=== PATIENT | female | born 1990 | race Caucasian/White ===

== ENCOUNTER 2020-07-05 17:04 | Outpatient (REF) | payer OTHER, SELFPAY | END 2020-07-05 17:05 | disposition home or self-care (01) | LOC: HO.LAB 17:04 | PROVIDERS: PCP Internal Medicine; Visit Provider Internal Medicine | DX: Z20.828 Contact with and (suspected) exposure to other viral communicable diseases (principal) | CPT/HCPCS: C9803; U0003 ==

== ENCOUNTER 2021-09-03 10:16 | Outpatient (REF) | payer OTHER, SELFPAY | END 2021-09-03 10:17 | disposition home or self-care (01) | LOC: HO.HMGCLDS 10:16 | PROVIDERS: Visit Provider Internal Medicine | DX: Z20.822 Contact with and (suspected) exposure to COVID-19 (principal) | CPT/HCPCS: C9803; U0003; U0005 ==

== ENCOUNTER 2021-10-03 09:47 | Outpatient (REF) | payer OTHER, SELFPAY ==
[2021-10-03 10:12] LABS: MANUAL DIFF FLAG NO
[2021-10-03 10:44] LABS: Basophils Percent Auto 0.3 % (0-2); Eosinophils Absolute Auto 0.1 X10*3/uL (0.0-0.4); Eosinophils Percent Auto 0.9 % (0-4); Hematocrit 35.8 % (37.0-47.0); Hemoglobin 11.4 g/dl (12.0-16.0); Imm Gran Abs Auto 0.02 X10*3/uL (0.00-0.03); Imm Gran Pct Auto 0.3 % (0.0-0.4); Lymphocytes Absolute Auto 1.6 X10*3/uL (1.2-4.9); Lymphocytes Percent Auto 22.1 % (20-40); Mean Corpuscular HGB Conc 31.8 g/dl (31.0-35.0); Mean Corpuscular Hemoglobin 26.7 pg (27.0-33.0); Mean Corpuscular Volume 83.8 fL (80.0-98.0); Mean Platelet Volume 10.8 fL (9.4-12.3); Monocytes Absolute Auto 0.5 X10*3/uL (0.1-1.2); Monocytes Percent Auto 6.8 % (2-11); Neutrophils Absolute Auto 5.2 x10*3/uL (2.0-8.3); Neutrophils Percent Auto 69.6 % (45-73); Platelet Count 291 X10*3/uL (160-400); Red Blood Count 4.27 X10*6/uL (4.20-5.50); Red Cell Distribution Width 12.7 % (11.0-16.0); White Blood Count 7.4 X10*3/uL (4.8-10.8)
[2021-10-03 11:07] LABS: Alanine Aminotransferase 22 U/L (0-31); Albumin Level 4.2 g/dL (3.5-5.0); Alkaline Phosphatase 77 U/L (39-117); Anion Gap 13 (12-20); Aspartate Amino Transferase 18 U/L (5-31); Bilirubin Total 0.6 mg/dL (0.0-1.0); Blood Urea Nitrogen 10 mg/dL (9-16); Calcium 9.9 mg/dL (8.4-10.2); Carbon Dioxide 27 mmol/L (22-29); Chloride 104 mmol/L (96-108); Cholesterol 167 mg/dL; Estimated Glomerular Filt Rate > 60; Glucose Random 86 mg/dL (60-115); HDL Cholesterol 56 mg/dL; LDL Cholesterol Calculated 98 mg/dl; Potassium 4.6 mmol/L (3.3-5.1); Sodium 139 mmol/L (135-145); Total Protein 7.7 g/dL (6.5-8.0); Triglycerides 67 mg/dL
[2021-10-03 11:32] LABS: Thyroid Stimulating Hormone 0.29 uIU/mL (0.32-4.0)
== END 2021-10-03 09:48 | disposition home or self-care (01) ==
LOC: HO.LAB 09:47
PROVIDERS: PCP Internal Medicine; Visit Provider Internal Medicine
DX: Z00.00 Encounter for general adult medical examination without abnormal findings (principal); E03.8 Other specified hypothyroidism
CPT/HCPCS: 36415; 80053; 80061; 84443; 85025

== ENCOUNTER 2021-11-28 10:49 | Outpatient (REF) | payer OTHER, SELFPAY ==
[2021-11-28 11:22] LABS: MANUAL DIFF FLAG NO
[2021-11-28 12:19] LABS: Basophils Percent Auto 0.3 % (0-2); Eosinophils Absolute Auto 0.1 X10*3/uL (0.0-0.4); Eosinophils Percent Auto 0.7 % (0-4); Hematocrit 37.2 % (37.0-47.0); Hemoglobin 12.3 g/dl (12.0-16.0); Imm Gran Abs Auto 0.03 X10*3/uL (0.00-0.03); Imm Gran Pct Auto 0.3 % (0.0-0.4); Lymphocytes Absolute Auto 1.8 X10*3/uL (1.2-4.9); Lymphocytes Percent Auto 18.3 % (20-40); Mean Corpuscular HGB Conc 33.1 g/dl (31.0-35.0); Mean Corpuscular Hemoglobin 28.6 pg (27.0-33.0); Mean Corpuscular Volume 86.5 fL (80.0-98.0); Mean Platelet Volume 11.2 fL (9.4-12.3); Monocytes Absolute Auto 0.5 X10*3/uL (0.1-1.2); Monocytes Percent Auto 5.5 % (2-11); Neutrophils Absolute Auto 7.3 x10*3/uL (2.0-8.3); Neutrophils Percent Auto 74.9 % (45-73); Platelet Count 289 X10*3/uL (160-400); Red Cell Distribution Width 15.3 % (11.0-16.0); White Blood Count 9.8 X10*3/uL (4.8-10.8)
[2021-11-28 13:04] LABS: Ferritin 16 ng/mL (10-122); Thyroid Stimulating Hormone 83.76 uIU/mL (0.32-4.0)
== END 2021-11-28 10:50 | disposition home or self-care (01) ==
LOC: HO.LAB 10:49
PROVIDERS: PCP Internal Medicine; Visit Provider Internal Medicine
DX: D64.9 Anemia, unspecified (principal); E03.8 Other specified hypothyroidism; M70.51 Other bursitis of knee, right knee
CPT/HCPCS: 36415; 82728; 84443; 85025

== ENCOUNTER 2022-03-05 09:39 | Outpatient (REF) | payer OTHER, SELFPAY ==
[2022-03-05 10:58] LABS: Thyroid Stimulating Hormone 2.78 uIU/mL (0.32-4.0)
== END 2022-03-05 09:40 | disposition home or self-care (01) ==
LOC: HO.LAB 09:39
PROVIDERS: PCP Internal Medicine; Visit Provider Internal Medicine
DX: E03.8 Other specified hypothyroidism (principal)
CPT/HCPCS: 36415; 84443

== ENCOUNTER 2022-09-03 07:55 | Outpatient (REF) | payer OTHER, SELFPAY ==
[2022-09-03 08:08] LABS: MANUAL DIFF FLAG NO
[2022-09-03 08:35] LABS: Basophils Percent Auto 0.2 % (0-2); Eosinophils Absolute Auto 0.1 X10*3/uL (0.0-0.4); Eosinophils Percent Auto 0.8 % (0-4); Hematocrit 37.5 % (37.0-47.0); Hemoglobin 12.1 g/dl (12.0-16.0); Imm Gran Abs Auto 0.03 X10*3/uL (0.00-0.03); Imm Gran Pct Auto 0.4 % (0.0-0.4); Lymphocytes Absolute Auto 1.6 X10*3/uL (1.2-4.9); Lymphocytes Percent Auto 19.4 % (20-40); Mean Corpuscular HGB Conc 32.3 g/dl (31.0-35.0); Mean Corpuscular Hemoglobin 27.8 pg (27.0-33.0); Mean Platelet Volume 10.6 fL (9.4-12.3); Monocytes Absolute Auto 0.5 X10*3/uL (0.1-1.2); Neutrophils Absolute Auto 6.2 x10*3/uL (2.0-8.3); Neutrophils Percent Auto 73.2 % (45-73); Platelet Count 280 X10*3/uL (160-400); Red Blood Count 4.36 X10*6/uL (4.20-5.50); Red Cell Distribution Width 12.4 % (11.0-16.0); White Blood Count 8.5 X10*3/uL (4.8-10.8)
[2022-09-03 09:03] LABS: Alanine Aminotransferase 18 U/L (0-31); Albumin Level 4.2 g/dL (3.5-5.0); Alkaline Phosphatase 74 U/L (39-117); Anion Gap 11 (12-20); Aspartate Amino Transferase 14 U/L (5-31); Bilirubin Total 0.8 mg/dL (0.0-1.0); Blood Urea Nitrogen 15 mg/dL (9-16); Calcium 9.3 mg/dL (8.4-10.2); Carbon Dioxide 28 mmol/L (22-29); Chloride 103 mmol/L (96-108); Cholesterol 179 mg/dL; Estimated Glomerular Filt Rate > 60; Glucose Random 91 mg/dL (60-115); HDL Cholesterol 55 mg/dL; LDL Cholesterol Calculated 113 mg/dl; Potassium 4.3 mmol/L (3.3-5.1); Sodium 138 mmol/L (135-145); Total Protein 7.6 g/dL (6.5-8.0); Triglycerides 55 mg/dL
[2022-09-03 09:22] LABS: Thyroid Stimulating Hormone 4.69 uIU/mL (0.32-4.0)
== END 2022-09-03 07:56 | disposition home or self-care (01) ==
LOC: HO.LAB 07:55
PROVIDERS: PCP Internal Medicine; Visit Provider Internal Medicine
DX: Z00.00 Encounter for general adult medical examination without abnormal findings (principal); Z13.31 Encounter for screening for depression; G43.109 Migraine with aura, not intractable, without status migrainosus; E03.8 Other specified hypothyroidism; B35.4 Tinea corporis
CPT/HCPCS: 36415; 80053; 80061; 84443; 85025

== ENCOUNTER 2022-09-04 14:42 | Emergency (ER) | payer OTHER, SELFPAY ==
--- NOTE | ~2022-09-04 | XR_ITS ---
EXAMINATION: XR CHEST CLINICAL INFORMATION: Cough and chest pain. COMPARISON: None TECHNIQUE: 2 views of the chest were obtained. FINDINGS: Normal appearance of the cardiomediastinal silhouette. Diffuse interstitial thickening with no focal airspace opacity, pleural effusion or pneumothorax. No acute osseous abnormalities. The visualized upper abdomen is within normal limits. XR/XR chest 2V IMPRESSION: Diffuse interstitial thickening which is nonspecific and could be associated with asthma, bronchitis, reactive airways disease or atypical viral infections.
[2022-09-04 16:09] VITALS: BP 127/80; PULSE 127; RESP 18; TEMP 36.8; O2SAT 97; BMI 36.5
--- NOTE | 2022-09-04 16:10 | ED.GENADULT ---
HPI - General Adult General Source: patient and family <SRINIVASA Preciado - Last Filed: 09/04/22 18:51> Mode of arrival: ambulatory <SRINIVASA Preciado - Last Filed: 09/04/22 18:51> Limitations: no limitations <SRINIVASA Preciado - Last Filed: 09/04/22 18:51> History of Present Illness HPI narrative: 31-year-old female with past medical history of hypothyroidism is here today for complaining of body aches, fever, chills, headache, sore throat, cough. Symptoms started this morning. Patient states that she was fine yesterday. Patient denies any ill contact. Patient denies traveling anywhere. Reports nausea without vomiting. She denies any measured fevers, dizziness, neck pain/stiffness, trouble swallowing or breathing, chest pain or shortness of breath, dyspnea on exertion, orthopnea, palpitations, paresthesias, abdominal pain, back pain, dysuria, hematuria, abnormal vaginal discharge, black or bloody stools, diarrhea constipation, recent travel or sick contacts, lower extremity edema or calf tenderness, rashes or any other symptoms complaints or concerns at this time. <SRINIVASA Preciado - Last Filed: 09/04/22 18:51> MD complaint: URI complaints <SRINIVASA Preciado - Last Filed: 09/04/22 18:51> Onset (ago): day(s) (Started today) <SRINIVASA Preciado - Last Filed: 09/04/22 18:51> Related Data Home medications: Previous Rx's Medication Instructions Recorded acetaminophen 500 mg tablet 1,000 mg PO QID PRN fever or pain 09/04/22 (Tylenol Extra Strength) #14 tabs cyclobenzaprine 10 mg tablet 10 mg PO Q8H #14 tabs 09/04/22 ibuprofen 800 mg tablet 800 mg PO Q8H PRN pain #14 tabs 09/04/22 ondansetron HCl 4 mg tablet 4 mg PO Q8H #14 tabs 09/04/22 oseltamivir 75 mg capsule (Tamiflu) 75 mg PO BID 5 days #10 caps 09/04/22 <TINO Nicole - Last Filed: 09/08/22 20:46> Allergies/adverse reactions: Allergies Allergy/AdvReac Type Severity Reaction Status Date / Time No Known Allergies Allergy Unverified 05/17/20 17:18 <ULISES Nicole-PERNELL - Last Filed: 09/08/22 20:46> Review of Systems Review of Systems: Constitutional : + fever/chills/fatigue/malaise, No Weight loss, No Night Sweats ENT/Mouth : No Hearing loss, No Ear Pain, + Nasal Congestion, No Sinus Pain, No Hoarseness, + sore throat, + Rhinorrhea, No Swallowing Difficulty Eyes: No Eye Pain, No Swelling, No Redness, No Foreign Body, No Discharge, No Vision Changes Cardiovascular : No Chest Pain, No SOB, No Dyspnea on Exertion, No Orthopnea, No Edema, No Palpitations Respiratory : + Cough, No Sputum, No Wheezing, No Smoke Exposure, No Dyspnea Gastrointestinal : + Nausea, No Vomiting, No Diarrhea, No Constipation, No abdominal Pain, No Hematochezia, No Melena Genitourinary : no irregular bleeding, No Dysuria, No Urinary Frequency, No Hematuria, No Urinary Incontinence, No Urgency, No Flank Pain, No Urinary Flow Changes, No Hesitancy Musculoskeletal : No joint pain, + Myalgias, No Joint Swelling Skin : No Skin Lesions, No rash Neuro : No Weakness, No Numbness, No Paresthesias, No Loss of Consciousness, No Dizziness, + Headache Psych : No Anxiety/Panic, No Depression, No SI/HI/AH/VH, No Social Issues, Heme/Lymph: No Bruising, No Bleeding,No Lymphadenopathy Endocrine : No Polyuria, No Polydipsia, No Temperature Intolerance <SRINIVASA Preciado - Last Filed: 09/04/22 18:51> Yes all other systems are reviewed and are negative <SRINIVASA Preciado - Last Filed: 09/04/22 18:51> [facility] Past Medical History Attestation statement: The following information was validated with the patient. <SRINIVASA Preciado - Last Filed: 09/04/22 18:51> Source: old records reviewed, obtained from family and nursing notes reviewed <SRINIVASA Preciado - Last Filed: 09/04/22 18:51> Social History Social History: Social History Advance Directives: No Advance Directives Information Provided: No <Ese Jeronimo COMPUTER OPERATIONS MANAGER-BC - Last Filed: 09/08/22 20:46> Physical Exam ED Vital Signs: Vital Signs - 24 hr 09/04/22 16:09 Temperature 98.2 F Pulse Rate 127 H Respiratory Rate 18 Blood Pressure 127/80 Pulse Oximetry 97 Oxygen Delivery Method Room Air BMI result Body Mass Index 36.5 <CANDELARIA NicoleP-BC - Last Filed: 09/08/22 20:46> Vital Signs - 24 hr 09/04/22 16:09 Temperature 98.2 F Pulse Rate 127 H Respiratory Rate 18 Blood Pressure 127/80 Pulse Oximetry 97 Oxygen Delivery Method Room Air BMI result Body Mass Index 36.5 vital signs have been reviewed as normal and appeared to be correct. Blood pressure normal. Heart rate 127. Respiration rate normal. Temperature normal. Oxygen saturation normal. <SRINIVASA Preciado - Last Filed: 09/04/22 18:51> Appearance: Alert. Oriented X3. No acute distress. Head: Normal external exam. Normocephalic. Atraumatic. Eyes: PERRLA. EOMI. Conjunctiva and sclera normal. Eyelids normal. ENT: EAC normal. TM's Normal. Posterior pharynx/tonsils erythematous with exudate noted bilaterally. Otherwise soft and hard palate within normal limits. The rest of the pharynx is within normal limits. Uvula midline. Moist mucous membranes. No lesions/ulcerations or masses noted on the tongue. Normal voice. No trismus noted. No drooling noted. No muffled voice noted. Neck: Normal inspection. Neck supple. FROM. No adenopathy. Thyroid Normal. No tracheal deviation noted. No crepitus is noted. No meningeal signs. No neck mass noted. No signs of trauma noted. CVS: Normal heart rate and rhythm. Heart sound normal. Pulses normal throughout. No murmurs/rales/gallops. Respiratory: No respiratory distress. Painless inspiration. Breath sounds normal. No wheezes/rales/rhonchi noted. Chest nontender. No crepitus is noted. No signs of trauma noted. No accessory muscle usage noted or decreased air movement noted. No signs of trauma. Abdomen: Soft and nontender. Bowel sounds normal in all 4 quadrants. No distention noted. No organomegaly noted. No visible injury noted. Back: No CVA tenderness. Full range of motion noted. Nontender. No signs of trauma. Patient neuro intact bilaterally and distally on all 4 extremities. Patient's reflexes intact bilaterally and distally on all 4 extremities. No rashes/lesion/induration/fluctuance or signs of infection noted. Skin: Skin warm and dry. Normal skin color. Normal skin turgor. No rashes/lesions/lacerations noted. Extremities: No lower extremity edema. No calf tenderness is noted. Extremities exhibit normal range of motion and nontender. Neuro: Oriented X 3. No motor deficit. No sensory deficit. Reflexes normal. Normal steady gait. No focal neuro deficits noted. CN's II-XII intact bilaterally? Vascular: + radial pulses/+ 2 distal pedal pulses/+2 dorsalis pedis b/l. Normal cap refill. No cyanosis noted to upper extremity nails and lower extremity toes nails. <SRINIVASA Preciado - Last Filed: 09/04/22 18:51> Course Course Course Narrative: SUHAIL 31-year-old female with past medical history of hypothyroidism is here today for complaining of body aches, fever, chills, headache, sore throat, cough. Symptoms started this morning. Patient states that she was fine yesterday. Patient denies any ill contact. Patient denies traveling anywhere. Reports nausea without vomiting. Patient denies dyspepsia, dysphagia or odynophagia. Vital signs stable except for tachycardia. Patient will get EKG, chest x-ray, swab for RSV, COVID, flu. <ULISES Nicole-PERNELL - Last Filed: 09/08/22 20:46> CANDACEE 31-year-old female with past medical history of hypothyroidism is here today for complaining of body aches, fever, chills, headache, sore throat, cough. Symptoms started this morning. Patient states that she was fine yesterday. Patient denies any ill contact. Patient denies traveling anywhere. Reports nausea without vomiting. Patient denies dyspepsia, dysphagia or odynophagia. Vital signs stable except for tachycardia. Patient will get EKG, chest x-ray, swab for RSV, COVID, flu. <SRINIVASA Preciado - Last Filed: 09/04/22 18:51> Reevaluation(s) Reevaluation #1: 31-year-old female with past medical history of hypothyroidism is here today for complaining of body aches, fever, chills, headache, sore throat, cough. Symptoms started this morning. Patient states that she was fine yesterday. Patient denies any ill contact. Patient denies traveling anywhere. Reports nausea without vomiting. Patient denied vomiting although when I went back into the room to perform a strep swab she started vomiting at least 200 mL of bilious emesis. Otherwise patient is alert and oriented x3. Not in any acute distress. Tachycardic at 127 otherwise all other vitals are within normal limits. Neck is soft nontender and supple with full range of motion no meningeal signs are noted. Posterior pharynx tonsils mildly erythematous with exudate noted. Uvula is midline. No trismus/drooling/stridor. Patient tolerating secretions well. Lungs are clear to auscultation. Patient moving all extremities. This patient presents with URI symptoms consistent with influenza. Differential diagnosis includes COVID versus pharyngitis versus RSV versus gastroenteritis. Presentation not consistent with acute bacterial pneumonia, influenza, asthma, transient airway hyperresponsiveness. Presentation not consistent with chronic causes of cough (including GERD, asthma, postnasal discharge, medication side effect, CHF, lung cancer or mass). Therefore at this time will obtain labs, UA, UHCG, EKG that was obtained in triage, chest x-ray, rapid strep. Provide a L of IV fluids with 30 g of IV Toradol and 2 mg of IV Valium along with 4 mg of Zofran re-evaluate. <SRINIVASA Preciado - Last Filed: 09/04/22 18:51> Time: 18:00 <SRINIVASA Precidao - Last Filed: 09/04/22 18:51> Reevaluation #2: Labs obtained and patient's random glucose is 122. Otherwise all other labs are within normal limits. UA within normal limits no evidence of UTI. UHCG negative for . Patient negative for strep RSV and COVID. Patient positive for influenza. Chest x-ray within normal limits no acute processes are noted. EKG sinus tachycardia no acute ischemic change are noted. Patient feels much better after the L of IV fluids therefore at this time will DC home with symptomatic treatment for her influenza diagnosis along with nausea and vomiting and instructions return if any new or worsening symptoms to follow up with primary care provider. Patient understands agrees with this plan. <SRINIVASA Preciado - Last Filed: 09/04/22 18:51> Time: 18:50 <SRINIVASA Preciado - Last Filed: 09/04/22 18:51> Medications Administered Discontinued Medications Generic Name Dose Route Start Last Admin Trade Name Freq PRN Reason Stop Dose Admin Diazepam 2 mg 09/04/22 17:57 09/04/22 18:41 Diazepam 10 Mg/2 Ml Cartridge IVPUSH 09/04/22 17:58 2 mg STAT STA Administration Sodium Chloride 1,000 mls @ 999 mls/hr 09/04/22 18:00 09/04/22 18:20 Ns IVCONT 09/04/22 19:00 999 mls/hr .Q1H1M KARINA Administration Ketorolac Tromethamine 30 mg 09/04/22 17:57 09/04/22 18:40 Ketorolac Tromethamine 30 Mg/Ml Vial IVPUSH 09/04/22 17:58 30 mg ONCE ONE Administration Ondansetron HCl 4 mg 09/04/22 17:58 09/04/22 18:40 Ondansetron Hcl 4 Mg/2 Ml Vial IVPUSH 09/04/22 17:59 4 mg ONCE ONE Administration <Ese Jeronimo, COMPUTER OPERATIONS MANAGER-BC - Last Filed: 09/08/22 20:46> Medications Administered Discontinued Medications Generic Name Dose Route Start Last Admin Trade Name Freq PRN Reason Stop Dose Admin Diazepam 2 mg 09/04/22 17:57 09/04/22 18:41 Diazepam 10 Mg/2 Ml Cartridge IVPUSH 09/04/22 17:58 2 mg STAT STA Administration Sodium Chloride 1,000 mls @ 999 mls/hr 09/04/22 18:00 09/04/22 18:20 Ns IVCONT 09/04/22 19:00 999 mls/hr .Q1H1M KARINA Administration Ketorolac Tromethamine 30 mg 09/04/22 17:57 09/04/22 18:40 Ketorolac Tromethamine 30 Mg/Ml Vial IVPUSH 09/04/22 17:58 30 mg ONCE ONE Administration Ondansetron HCl 4 mg 09/04/22 17:58 09/04/22 18:40 Ondansetron Hcl 4 Mg/2 Ml Vial IVPUSH 09/04/22 17:59 4 mg ONCE ONE Administration <SRINIVASA Preciado - Last Filed: 09/04/22 18:51> Medical Decision Making Lab Data [facility] Lab Attestation statement: I reviewed the patient's lab results. <SRINIVASA Preciado - Last Filed: 09/04/22 18:51> Result Diagrams: 09/04/22 18:22 09/04/22 18:22 <ULISES Nicole- - Last Filed: 09/08/22 20:46> Labs: Lab Results 09/04/22 09/04/22 09/04/22 Range/Units 16:33 16:39 16:39 WBC (4.8-10.8) X10*3/uL RBC (4.20-5.50) X10*6/uL Hgb (12.0-16.0) g/dl Hct (37.0-47.0) % MCV (80.0-98.0) fL MCH (27.0-33.0) pg MCHC (31.0-35.0) g/dl RDW (11.0-16.0) % Plt Count (160-400) X10*3/uL MPV (9.4-12.3) fL Immature Gran % (Auto) (0.0-0.4) % Neut % (Auto) (45-73) % Lymph % (Auto) (20-40) % Door % (Auto) (2-11) % Eos % (Auto) (0-4) % Baso % (Auto) (0-2) % Lymph # (Auto) (1.2-4.9) X10*3/uL Door # (Auto) (0.1-1.2) X10*3/uL Eos # (Auto) (0.0-0.4) X10*3/uL Baso # (Auto) (0.0-0.2) X10*3/uL Abs Immat Gran (auto) (0.00-0.03) X10*3/uL Absolute Neuts (auto) (2.0-8.3) x10*3/uL Absolute Nucleated RBC (0.0-0.012) X10*3/uL Nucleated RBC % (auto) (0.0-0.2) /100WBC Smear Tech's Comments PT (10.0-13.1) SEC INR (0.9-1.1) Sodium (135-145) mmol/L Potassium (3.3-5.1) mmol/L Chloride (96-108) mmol/L Carbon Dioxide (22-29) mmol/L Anion Gap (12-20) BUN (9-16) mg/dL Creatinine (0.5-1.4) mg/dL Estim Creat Clear Calc Estimated GFR Random Glucose (60-115) mg/dL Calcium (8.4-10.2) mg/dL Magnesium (1.6-2.6) mg/dL Total Bilirubin (0.0-1.0) mg/dL AST (5-31) U/L ALT (0-31) U/L Alkaline Phosphatase (39-117) U/L Total Protein (6.5-8.0) g/dL Albumin (3.5-5.0) g/dL Urine Color Yellow Urine Appearance Clear Urine pH 8.5 (5.0-9.0) Ur Specific [place] 1.020 (1.005-1.025) Urine Protein Negative (Neg-Trace) mg/dL Urine Glucose (UA) Negative (Negative) mg/dL Urine Ketones 15 (Negative) mg/dL Urine Blood Trace H (Negative) Urine Nitrite Negative (Negative) Ur Leukocyte Esterase Negative (Negative) Urine RBC 6-10 H (0-2) /HPF Urine WBC 0-5 (0-5) /HPF Ur Squamous Epith Cells 3-5 (0-2) /HPF Urine Bacteria 1+ (None Seen) Hyaline Casts 0-2 (0-2) /LPF Urine Test NEGATIVE (NEGATIVE) Influenza Type A (PCR) POSITIVE A (Negative) Influenza Type B (PCR) NEGATIVE (Negative) RSV RNA Qual (PCR) NEGATIVE (Negative) SARS-CoV-2 RNA (RT-PCR) NEGATIVE (Negative) S. pyogenes GrpA BRANDY (Negative) 09/04/22 09/04/22 09/04/22 Range/Units 18:22 18:22 18:22 WBC 9.7 (4.8-10.8) X10*3/uL RBC 4.39 (4.20-5.50) X10*6/uL Hgb 12.1 (12.0-16.0) g/dl Hct 36.9 L (37.0-47.0) % MCV 84.1 (80.0-98.0) fL MCH 27.6 (27.0-33.0) pg MCHC 32.8 (31.0-35.0) g/dl RDW 12.5 (11.0-16.0) % Plt Count 261 (160-400) X10*3/uL MPV 10.7 (9.4-12.3) fL Immature Gran % (Auto) 1.2 H (0.0-0.4) % Neut % (Auto) 91.1 H (45-73) % Lymph % (Auto) 2.5 L (20-40) % Door % (Auto) 5.1 (2-11) % Eos % (Auto) 0.0 (0-4) % Baso % (Auto) 0.1 (0-2) % Lymph # (Auto) 0.2 L (1.2-4.9) X10*3/uL Door # (Auto) 0.5 (0.1-1.2) X10*3/uL Eos # (Auto) 0.0 (0.0-0.4) X10*3/uL Baso # (Auto) 0.0 (0.0-0.2) X10*3/uL Abs Immat Gran (auto) 0.12 H (0.00-0.03) X10*3/uL Absolute Neuts (auto) 8.8 H (2.0-8.3) x10*3/uL Absolute Nucleated RBC 0.000 (0.0-0.012) X10*3/uL Nucleated RBC % (auto) 0.0 (0.0-0.2) /100WBC Smear Tech's Comments VERIFIED PT 13.9 H (10.0-13.1) SEC INR 1.2 H (0.9-1.1) Sodium (135-145) mmol/L Potassium (3.3-5.1) mmol/L Chloride (96-108) mmol/L Carbon Dioxide (22-29) mmol/L Anion Gap (12-20) BUN (9-16) mg/dL Creatinine (0.5-1.4) mg/dL Estim Creat Clear Calc Estimated GFR Random Glucose (60-115) mg/dL Calcium (8.4-10.2) mg/dL Magnesium (1.6-2.6) mg/dL Total Bilirubin (0.0-1.0) mg/dL AST (5-31) U/L ALT (0-31) U/L Alkaline Phosphatase (39-117) U/L Total Protein (6.5-8.0) g/dL Albumin (3.5-5.0) g/dL Urine Color Urine Appearance Urine pH (5.0-9.0) Ur Specific [place] (1.005-1.025) Urine Protein (Neg-Trace) mg/dL Urine Glucose (UA) (Negative) mg/dL Urine Ketones (Negative) mg/dL Urine Blood (Negative) Urine Nitrite (Negative) Ur Leukocyte Esterase (Negative) Urine RBC (0-2) /HPF Urine WBC (0-5) /HPF Ur Squamous Epith Cells (0-2) /HPF Urine Bacteria (None Seen) Hyaline Casts (0-2) /LPF Urine Test (NEGATIVE) Influenza Type A (PCR) (Negative) Influenza Type B (PCR) (Negative) RSV RNA Qual (PCR) (Negative) SARS-CoV-2 RNA (RT-PCR) (Negative) S. pyogenes GrpA BRANDY Negative (Negative) 09/04/22 Range/Units 18:22 WBC (4.8-10.8) X10*3/uL RBC (4.20-5.50) X10*6/uL Hgb (12.0-16.0) g/dl Hct (37.0-47.0) % MCV (80.0-98.0) fL MCH (27.0-33.0) pg MCHC (31.0-35.0) g/dl RDW (11.0-16.0) % Plt Count (160-400) X10*3/uL MPV (9.4-12.3) fL Immature Gran % (Auto) (0.0-0.4) % Neut % (Auto) (45-73) % Lymph % (Auto) (20-40) % Door % (Auto) (2-11) % Eos % (Auto) (0-4) % Baso % (Auto) (0-2) % Lymph # (Auto) (1.2-4.9) X10*3/uL Door # (Auto) (0.1-1.2) X10*3/uL Eos # (Auto) (0.0-0.4) X10*3/uL Baso # (Auto) (0.0-0.2) X10*3/uL Abs Immat Gran (auto) (0.00-0.03) X10*3/uL Absolute Neuts (auto) (2.0-8.3) x10*3/uL Absolute Nucleated RBC (0.0-0.012) X10*3/uL Nucleated RBC % (auto) (0.0-0.2) /100WBC Smear Tech's Comments PT (10.0-13.1) SEC INR (0.9-1.1) Sodium 135 (135-145) mmol/L Potassium 3.7 (3.3-5.1) mmol/L Chloride 102 (96-108) mmol/L Carbon Dioxide 23 (22-29) mmol/L Anion Gap 14 (12-20) BUN 11 (9-16) mg/dL Creatinine 0.76 (0.5-1.4) mg/dL Estim Creat Clear Calc 135.3 Estimated GFR > 60 Random Glucose 122 H (60-115) mg/dL Calcium 9.2 (8.4-10.2) mg/dL Magnesium 1.6 (1.6-2.6) mg/dL Total Bilirubin 0.6 (0.0-1.0) mg/dL AST 16 (5-31) U/L ALT 19 (0-31) U/L Alkaline Phosphatase 79 (39-117) U/L Total Protein 7.7 (6.5-8.0) g/dL Albumin 4.3 (3.5-5.0) g/dL Urine Color Urine Appearance Urine pH (5.0-9.0) Ur Specific [place] (1.005-1.025) Urine Protein (Neg-Trace) mg/dL Urine Glucose (UA) (Negative) mg/dL Urine Ketones (Negative) mg/dL Urine Blood (Negative) Urine Nitrite (Negative) Ur Leukocyte Esterase (Negative) Urine RBC (0-2) /HPF Urine WBC (0-5) /HPF Ur Squamous Epith Cells (0-2) /HPF Urine Bacteria (None Seen) Hyaline Casts (0-2) /LPF Urine Test (NEGATIVE) Influenza Type A (PCR) (Negative) Influenza Type B (PCR) (Negative) RSV RNA Qual (PCR) (Negative) SARS-CoV-2 RNA (RT-PCR) (Negative) S. pyogenes GrpA BRANDY (Negative) <Ese Jeronimo, COMPUTER OPERATIONS MANAGER-BC - Last Filed: 09/08/22 20:46> Lab Results 09/04/22 09/04/22 09/04/22 Range/Units 16:33 16:39 16:39 WBC (4.8-10.8) X10*3/uL RBC (4.20-5.50) X10*6/uL Hgb (12.0-16.0) g/dl Hct (37.0-47.0) % MCV (80.0-98.0) fL MCH (27.0-33.0) pg MCHC (31.0-35.0) g/dl RDW (11.0-16.0) % Plt Count (160-400) X10*3/uL MPV (9.4-12.3) fL Immature Gran % (Auto) (0.0-0.4) % Neut % (Auto) (45-73) % Lymph % (Auto) (20-40) % Door % (Auto) (2-11) % Eos % (Auto) (0-4) % Baso % (Auto) (0-2) % Lymph # (Auto) (1.2-4.9) X10*3/uL Door # (Auto) (0.1-1.2) X10*3/uL Eos # (Auto) (0.0-0.4) X10*3/uL Baso # (Auto) (0.0-0.2) X10*3/uL Abs Immat Gran (auto) (0.00-0.03) X10*3/uL Absolute Neuts (auto) (2.0-8.3) x10*3/uL Absolute Nucleated RBC (0.0-0.012) X10*3/uL Nucleated RBC % (auto) (0.0-0.2) /100WBC Smear Tech's Comments PT (10.0-13.1) SEC INR (0.9-1.1) Sodium (135-145) mmol/L Potassium (3.3-5.1) mmol/L Chloride (96-108) mmol/L Carbon Dioxide (22-29) mmol/L Anion Gap (12-20) BUN (9-16) mg/dL Creatinine (0.5-1.4) mg/dL Estim Creat Clear Calc Estimated GFR Random Glucose (60-115) mg/dL Calcium (8.4-10.2) mg/dL Magnesium (1.6-2.6) mg/dL Total Bilirubin (0.0-1.0) mg/dL AST (5-31) U/L ALT (0-31) U/L Alkaline Phosphatase (39-117) U/L Total Protein (6.5-8.0) g/dL Albumin (3.5-5.0) g/dL Urine Color Yellow Urine Appearance Clear Urine pH 8.5 (5.0-9.0) Ur Specific [place] 1.020 (1.005-1.025) Urine Protein Negative (Neg-Trace) mg/dL Urine Glucose (UA) Negative (Negative) mg/dL Urine Ketones 15 (Negative) mg/dL Urine Blood Trace H (Negative) Urine Nitrite Negative (Negative) Ur Leukocyte Esterase Negative (Negative) Urine RBC 6-10 H (0-2) /HPF Urine WBC 0-5 (0-5) /HPF Ur Squamous Epith Cells 3-5 (0-2) /HPF Urine Bacteria 1+ (None Seen) Hyaline Casts 0-2 (0-2) /LPF Urine Test NEGATIVE (NEGATIVE) Influenza Type A (PCR) POSITIVE A (Negative) Influenza Type B (PCR) NEGATIVE (Negative) RSV RNA Qual (PCR) NEGATIVE (Negative) SARS-CoV-2 RNA (RT-PCR) NEGATIVE (Negative) S. pyogenes GrpA BRANDY (Negative) 09/04/22 09/04/22 09/04/22 Range/Units 18:22 18:22 18:22 WBC 9.7 (4.8-10.8) X10*3/uL RBC 4.39 (4.20-5.50) X10*6/uL Hgb 12.1 (12.0-16.0) g/dl Hct 36.9 L (37.0-47.0) % MCV 84.1 (80.0-98.0) fL MCH 27.6 (27.0-33.0) pg MCHC 32.8 (31.0-35.0) g/dl RDW 12.5 (11.0-16.0) % Plt Count 261 (160-400) X10*3/uL MPV 10.7 (9.4-12.3) fL Immature Gran % (Auto) 1.2 H (0.0-0.4) % Neut % (Auto) 91.1 H (45-73) % Lymph % (Auto) 2.5 L (20-40) % Door % (Auto) 5.1 (2-11) % Eos % (Auto) 0.0 (0-4) % Baso % (Auto) 0.1 (0-2) % Lymph # (Auto) 0.2 L (1.2-4.9) X10*3/uL Door # (Auto) 0.5 (0.1-1.2) X10*3/uL Eos # (Auto) 0.0 (0.0-0.4) X10*3/uL Baso # (Auto) 0.0 (0.0-0.2) X10*3/uL Abs Immat Gran (auto) 0.12 H (0.00-0.03) X10*3/uL Absolute Neuts (auto) 8.8 H (2.0-8.3) x10*3/uL Absolute Nucleated RBC 0.000 (0.0-0.012) X10*3/uL Nucleated RBC % (auto) 0.0 (0.0-0.2) /100WBC Smear Tech's Comments VERIFIED PT 13.9 H (10.0-13.1) SEC INR 1.2 H (0.9-1.1) Sodium (135-145) mmol/L Potassium (3.3-5.1) mmol/L Chloride (96-108) mmol/L Carbon Dioxide (22-29) mmol/L Anion Gap (12-20) BUN (9-16) mg/dL Creatinine (0.5-1.4) mg/dL Estim Creat Clear Calc Estimated GFR Random Glucose (60-115) mg/dL Calcium (8.4-10.2) mg/dL Magnesium (1.6-2.6) mg/dL Total Bilirubin (0.0-1.0) mg/dL AST (5-31) U/L ALT (0-31) U/L Alkaline Phosphatase (39-117) U/L Total Protein (6.5-8.0) g/dL Albumin (3.5-5.0) g/dL Urine Color Urine Appearance Urine pH (5.0-9.0) Ur Specific [place] (1.005-1.025) Urine Protein (Neg-Trace) mg/dL Urine Glucose (UA) (Negative) mg/dL Urine Ketones (Negative) mg/dL Urine Blood (Negative) Urine Nitrite (Negative) Ur Leukocyte Esterase (Negative) Urine RBC (0-2) /HPF Urine WBC (0-5) /HPF Ur Squamous Epith Cells (0-2) /HPF Urine Bacteria (None Seen) Hyaline Casts (0-2) /LPF Urine Test (NEGATIVE) Influenza Type A (PCR) (Negative) Influenza Type B (PCR) (Negative) RSV RNA Qual (PCR) (Negative) SARS-CoV-2 RNA (RT-PCR) (Negative) S. pyogenes GrpA BRANDY Negative (Negative) 09/04/22 Range/Units 18:22 WBC (4.8-10.8) X10*3/uL RBC (4.20-5.50) X10*6/uL Hgb (12.0-16.0) g/dl Hct (37.0-47.0) % MCV (80.0-98.0) fL MCH (27.0-33.0) pg MCHC (31.0-35.0) g/dl RDW (11.0-16.0) % Plt Count (160-400) X10*3/uL MPV (9.4-12.3) fL Immature Gran % (Auto) (0.0-0.4) % Neut % (Auto) (45-73) % Lymph % (Auto) (20-40) % Door % (Auto) (2-11) % Eos % (Auto) (0-4) % Baso % (Auto) (0-2) % Lymph # (Auto) (1.2-4.9) X10*3/uL Door # (Auto) (0.1-1.2) X10*3/uL Eos # (Auto) (0.0-0.4) X10*3/uL Baso # (Auto) (0.0-0.2) X10*3/uL Abs Immat Gran (auto) (0.00-0.03) X10*3/uL Absolute Neuts (auto) (2.0-8.3) x10*3/uL Absolute Nucleated RBC (0.0-0.012) X10*3/uL Nucleated RBC % (auto) (0.0-0.2) /100WBC Smear Tech's Comments PT (10.0-13.1) SEC INR (0.9-1.1) Sodium 135 (135-145) mmol/L Potassium 3.7 (3.3-5.1) mmol/L Chloride 102 (96-108) mmol/L Carbon Dioxide 23 (22-29) mmol/L Anion Gap 14 (12-20) BUN 11 (9-16) mg/dL Creatinine 0.76 (0.5-1.4) mg/dL Estim Creat Clear Calc 135.3 Estimated GFR > 60 Random Glucose 122 H (60-115) mg/dL Calcium 9.2 (8.4-10.2) mg/dL Magnesium 1.6 (1.6-2.6) mg/dL Total Bilirubin 0.6 (0.0-1.0) mg/dL AST 16 (5-31) U/L ALT 19 (0-31) U/L Alkaline Phosphatase 79 (39-117) U/L Total Protein 7.7 (6.5-8.0) g/dL Albumin 4.3 (3.5-5.0) g/dL Urine Color Urine Appearance Urine pH (5.0-9.0) Ur Specific [place] (1.005-1.025) Urine Protein (Neg-Trace) mg/dL Urine Glucose (UA) (Negative) mg/dL Urine Ketones (Negative) mg/dL Urine Blood (Negative) Urine Nitrite (Negative) Ur Leukocyte Esterase (Negative) Urine RBC (0-2) /HPF Urine WBC (0-5) /HPF Ur Squamous Epith Cells (0-2) /HPF Urine Bacteria (None Seen) Hyaline Casts (0-2) /LPF Urine Test (NEGATIVE) Influenza Type A (PCR) (Negative) Influenza Type B (PCR) (Negative) RSV RNA Qual (PCR) (Negative) SARS-CoV-2 RNA (RT-PCR) (Negative) S. pyogenes GrpA BRANDY (Negative) <SRINIVASA Preciado - Last Filed: 09/04/22 18:51> Independent Interpretation I performed an independent interpretation of an: EKG (Sinus tachycardia with ventricular rate of 116 with a normal VA interval normal QRS duration normal QT/QTC interval. No acute ischemic change are noted. No prior EKGs to compare to at this time.) and Plain X-Ray <SRINIVASA Preciado Last Filed: 09/04/22 18:51> Interpretation: Chest x-ray FINDINGS: Normal appearance of the cardiomediastinal silhouette. Diffuse interstitial thickening with no focal airspace opacity, pleural effusion or pneumothorax. No acute osseous abnormalities. The visualized upper abdomen is within normal limits. XR/XR chest 2V IMPRESSION: Diffuse interstitial thickening which is nonspecific and could be associated with asthma, bronchitis, reactive airways disease or atypical viral infections. <SRINIVASA Preciado Last Filed: 09/04/22 18:51> Radiology Impression Discussion of test interpretation with radiology: I have reviewed the radiologist's reading. <SRINIVASA Preciado Last Filed: 09/04/22 18:51> Independent Historian Clinical information obtained from an independent historian. History obtained from or confirmed by: Spouse <SRINIVASA Preciado Last Filed: 09/04/22 18:51> External Record Review External record reviewed: Inpatient record, Office record, Outpatient record, Prior outpatient labs, Prior outpatient radiology, Primary care record and Outside ED record <SRINIVASA Preciado Last Filed: 09/04/22 18:51> Prescription Management I considered prescription management with: Pain Medication, Antiviral and Antibiotic <SRINIVASA Preciado Last Filed: 09/04/22 18:51> Discharge Plan Discharge Clinical Impression: Influenza A, Nausea & vomiting <EseULISES Haider-BC - Last Filed: 09/08/22 20:46> Patient Disposition: Home, Self-Care <Ese TEREZA BrownPERNELL - Last Filed: 09/08/22 20:46> Instructions: Influenza (ED), Acute Nausea and Vomiting (ED) <EseULISES Haider-PERNELL - Last Filed: 09/08/22 20:46> Additional Instructions: You were evaluated for multiple concerns. You tested positive for influenza A. Alternate Tylenol 650 mg every 6 hours and Motrin 800 mg every 6 hours as needed for muscle aches and fever management. We gave you dose of Toradol at 19:00, your next dose of Motrin would be due at 01:00. Consider taking Tylenol at 23:00 so you can have pain and fever management every 3 hours. Write down what time you take these medications to prevent accidental overdose. Drink plenty of fluids. If symptoms worsen please return to the emergency department. Your prescribed multiple medications, please follow the instructions and write down what time you take them. Thank you for choosing this emergency department for evaluation. Please follow-up with primary care physician as needed. Return to the emergency department for any new, concerning, or worsening symptoms. <TEREZA NicolePERNELL - Last Filed: 09/08/22 20:46> Prescriptions: New ibuprofen 800 mg tablet 800 mg PO Q8H PRN (Reason: pain) Qty: 14 0RF acetaminophen [Tylenol Extra Strength] 500 mg tablet 1,000 mg PO QID PRN (Reason: fever or pain) Qty: 14 0RF cyclobenzaprine 10 mg tablet 10 mg PO Q8H Qty: 14 0RF ondansetron HCl 4 mg tablet 4 mg PO Q8H Qty: 14 0RF oseltamivir [Tamiflu] 75 mg capsule 75 mg PO BID 5 Days Qty: 10 0RF <TINO Nicole - Last Filed: 09/08/22 20:46> Referrals: Reema Rivera MD [Primary Care Provider] - 5 days <TINO Nicole - Last Filed: 09/08/22 20:46> Stand Alone Forms: Work/School Release <TINO Nicole - Last Filed: 09/08/22 20:46> Interventions: ED Discharge Assessment Last Done: 09/04/22 20:10 <TINO Nicole - Last Filed: 09/08/22 20:46> Discharge Date/Time: 09/04/22 20:11 <TINO Nicole - Last Filed: 09/08/22 20:46>
--- NOTE | 2022-09-04 16:19 | ECG_ITS ---
Test Reason : CP COUGH Blood Pressure : / mmHG Vent. Rate : 116 BPM Atrial Rate : 116 BPM P-R Int : 164 ms QRS Dur : 090 ms QT Int : 310 ms P-R-T Axes : 051 027 033 degrees QTc Int : 430 ms Sinus tachycardia Cannot rule out Anterior infarct , age undetermined ; could be from lead placement, body habitus Abnormal ECG No previous ECGs available Referred By: Ese Jeronimo Electronically Signed By:JOSE G KUMAR
[2022-09-04 16:58] LABS: Appearance Urine Clear; Color Urine Yellow; Glucose Urine UA Negative (Negative); Leukocyte Esterase Urine Negative (Negative); Nitrite Urine Negative (Negative); PH 8.5 (5.0-9.0); UMIC TRIGGER UACC YES; Urine Blood Trace (Negative); Urine Ketones 15 mg/dL (Negative); Urine Protein Negative (Neg-Trace)
[2022-09-04 17:00] LABS: UPreg QC Valid YES; Urine Pregnancy NEGATIVE (NEGATIVE)
[2022-09-04 17:21] LABS: Bacteria Urine 1+ (None Seen); Hyaline Casts Urine 0-2 /LPF (0-2); WBC Urine 0-5 /HPF (0-5)
[2022-09-04 17:28] LABS: Influenza A PCR POSITIVE (Negative); Influenza B PCR NEGATIVE (Negative); Resp Syncy Virus RNA Qual PCR NEGATIVE (Negative); SARS COV2 PCR INHOUSE NEGATIVE (Negative)
[2022-09-04] MEDS: 0.9 % Sodium Chloride 1,000 ML 999 ML IVCONT (18:20)
[2022-09-04 18:33] LABS: INTERNATIONAL NORM RATIO 1.2 (0.9-1.1); Prothrombin Time 13.9 SEC (10.0-13.1)
[2022-09-04] MEDS: ondansetron HCL 4 MG/2 ML VIAL IVPUSH (18:40)
[2022-09-04] MEDS: Ketorolac Tromethamine 30 MG/ML VIAL IVPUSH (18:40)
[2022-09-04] MEDS: diazePAM 10 MG/2 ML CARTRIDGE 2 MG IVPUSH (18:41)
[2022-09-04 18:43] LABS: IDNOW Serial# 6674DD1D; Strep A Nucleic Acid Negative (Negative)
[2022-09-04 18:45] LABS: Alanine Aminotransferase 19 U/L (0-31); Albumin Level 4.3 g/dL (3.5-5.0); Alkaline Phosphatase 79 U/L (39-117); Anion Gap 14 (12-20); Aspartate Amino Transferase 16 U/L (5-31); Bilirubin Total 0.6 mg/dL (0.0-1.0); Blood Urea Nitrogen 11 mg/dL (9-16); Calcium 9.2 mg/dL (8.4-10.2); Carbon Dioxide 23 mmol/L (22-29); Chloride 102 mmol/L (96-108); Creatinine Clr Calc Pharmacy 135.3; Estimated Glomerular Filt Rate > 60; Glucose Random 122 mg/dL (60-115); Magnesium 1.6 mg/dL (1.6-2.6); Potassium 3.7 mmol/L (3.3-5.1); Sodium 135 mmol/L (135-145); Total Protein 7.7 g/dL (6.5-8.0)
[2022-09-04 18:46] LABS: Basophils Percent Auto 0.1 % (0-2); Hematocrit 36.9 % (37.0-47.0); Hemoglobin 12.1 g/dl (12.0-16.0); Imm Gran Abs Auto 0.12 X10*3/uL (0.00-0.03); Imm Gran Pct Auto 1.2 % (0.0-0.4); Lymphocytes Absolute Auto 0.2 X10*3/uL (1.2-4.9); Lymphocytes Percent Auto 2.5 % (20-40); MANUAL DIFF FLAG SCAN; Mean Corpuscular HGB Conc 32.8 g/dl (31.0-35.0); Mean Corpuscular Hemoglobin 27.6 pg (27.0-33.0); Mean Corpuscular Volume 84.1 fL (80.0-98.0); Mean Platelet Volume 10.7 fL (9.4-12.3); Monocytes Absolute Auto 0.5 X10*3/uL (0.1-1.2); Monocytes Percent Auto 5.1 % (2-11); Neutrophils Absolute Auto 8.8 x10*3/uL (2.0-8.3); Neutrophils Percent Auto 91.1 % (45-73); Platelet Count 261 X10*3/uL (160-400); Red Blood Count 4.39 X10*6/uL (4.20-5.50); Red Cell Distribution Width 12.5 % (11.0-16.0); SCAN SMEAR FLAG 1; White Blood Count 9.7 X10*3/uL (4.8-10.8)
[2022-09-04 19:47] LABS: SLIDE REVIEW VERIFIED
== END 2022-09-04 20:11 | disposition home or self-care (01) ==
PROVIDERS: Nurse Practitioner Family; Physician Assistant Medical; Emergency Provider Emergency Medicine Emergency Medical Services; PCP Internal Medicine
DX: J10.1 Influenza due to other identified influenza virus with other respiratory manifestations (principal); R11.2 Nausea with vomiting, unspecified; R07.89 Other chest pain; R05.9 Cough, unspecified; Z20.822 Contact with and (suspected) exposure to COVID-19; Z79.899 Other long term (current) drug therapy
CPT/HCPCS: 0241U; 36415; 71046; 80053; 81001; 81003; 81025; 83735; 85025; 85610; 87651; 93005; 96374; 96375; 99284; J1885; J2405; J3360

== ENCOUNTER 2023-02-24 12:40 | Outpatient (REF) | payer OTHER, SELFPAY ==
[2023-02-25 04:36] LABS: HBS Num1 7.73 mIU/mL (0-7.99); ~Hepatitis B Surface Antibody NONREACTIVE (Nonreactive)
[2023-02-26 08:23] LABS: Rubella IgG Antibody <0.90 Index
[2023-02-26 10:03] LABS: Rubeola IgG (Measles) <13.50 AU/mL
[2023-02-26 21:54] LABS: TS Negative Control Passed; TS Panel A 0; TS Panel B 0; TS Positive Control Passed; TSpotTB Negative (Negative)
== END 2023-02-24 12:41 | disposition home or self-care (01) ==
LOC: HO.LAB 12:40
PROVIDERS: PCP Internal Medicine; Visit Provider Internal Medicine
DX: J35.3 Hypertrophy of tonsils with hypertrophy of adenoids (principal); Z11.1 Encounter for screening for respiratory tuberculosis
CPT/HCPCS: 36415; 86481; 86706; 86735; 86762; 86765; 86787

== ENCOUNTER 2023-03-19 09:01 | Outpatient (REF) | payer OTHER, SELFPAY | END 2023-03-19 09:02 | disposition home or self-care (01) | LOC: HO.LAB 09:01 | PROVIDERS: PCP Internal Medicine; Visit Provider Internal Medicine | DX: E03.8 Other specified hypothyroidism (principal); R21 Rash and other nonspecific skin eruption | CPT/HCPCS: 36415; 84443 ==

== ENCOUNTER 2023-06-25 11:16 | Outpatient (REF) | payer OTHER, SELFPAY ==
[2023-06-25 11:25] LABS: MANUAL DIFF FLAG NO
[2023-06-25 11:54] LABS: Basophils Percent Auto 0.3 % (0-2); Eosinophils Percent Auto 0.5 % (0-4); Hematocrit 35.9 % (37.0-47.0); Hemoglobin 11.6 g/dl (12.0-16.0); Imm Gran Abs Auto 0.02 X10*3/uL (0.00-0.03); Imm Gran Pct Auto 0.3 % (0.0-0.4); Lymphocytes Absolute Auto 1.8 X10*3/uL (1.2-4.9); Lymphocytes Percent Auto 22.6 % (20-40); Mean Corpuscular HGB Conc 32.3 g/dl (31.0-35.0); Mean Corpuscular Volume 86.5 fL (80.0-98.0); Mean Platelet Volume 10.9 fL (9.4-12.3); Monocytes Absolute Auto 0.4 X10*3/uL (0.1-1.2); Monocytes Percent Auto 5.4 % (2-11); Neutrophils Absolute Auto 5.6 x10*3/uL (2.0-8.3); Neutrophils Percent Auto 70.9 % (45-73); Platelet Count 263 X10*3/uL (160-400); Red Blood Count 4.15 X10*6/uL (4.20-5.50); Red Cell Distribution Width 12.8 % (11.0-16.0); White Blood Count 7.8 X10*3/uL (4.8-10.8)
[2023-06-26 17:39] LABS: Rubeola IgG (Measles) >300.00 AU/mL
[2023-06-27 14:33] LABS: Anti Nuclear Antibody Screen NEGATIVE (NEGATIVE)
== END 2023-06-25 11:17 | disposition home or self-care (01) ==
LOC: HO.LAB 11:16
PROVIDERS: PCP Internal Medicine; Visit Provider Internal Medicine
DX: K12.1 Other forms of stomatitis (principal); R21 Rash and other nonspecific skin eruption
CPT/HCPCS: 36415; 85025; 86038; 86735; 86762; 86765

== ENCOUNTER 2023-07-06 14:51 | Outpatient (REF) | payer OTHER, SELFPAY ==
[2023-07-07 05:50] LABS: HBS Num1 > 1000.00 mIU/mL (0-7.99); ~Hepatitis B Surface Antibody REACTIVE (Nonreactive)
== END 2023-07-06 14:52 | disposition home or self-care (01) ==
LOC: HO.LAB 14:51
PROVIDERS: PCP Internal Medicine; Visit Provider Internal Medicine
DX: K12.1 Other forms of stomatitis (principal); R21 Rash and other nonspecific skin eruption
CPT/HCPCS: 36415; 86706

== ENCOUNTER 2023-08-19 12:09 | Outpatient (REF) | payer OTHER, SELFPAY ==
[2023-08-19 14:00] LABS: Thyroid Stimulating Hormone 0.77 uIU/mL (0.32-4.0)
== END 2023-08-19 12:10 | disposition home or self-care (01) ==
LOC: HO.LAB 12:09
PROVIDERS: PCP Internal Medicine; Visit Provider Internal Medicine
DX: E03.8 Other specified hypothyroidism (principal)
CPT/HCPCS: 36415; 84443

== ENCOUNTER 2024-03-28 15:19 | Outpatient (REF) | payer OTHER, SELFPAY ==
[2024-03-28 17:52] LABS: Thyroid Stimulating Hormone 1.26 uIU/mL (0.32-4.0)
[2024-03-31 02:29] LABS: TS Negative Control Passed; TS Panel A 1; TS Panel B 0; TS Positive Control Passed; TSpotTB Negative (Negative)
== END 2024-03-28 15:20 | disposition home or self-care (01) ==
LOC: HO.LAB 15:19
PROVIDERS: PCP Internal Medicine; Visit Provider Internal Medicine
DX: E03.8 Other specified hypothyroidism (principal); G43.109 Migraine with aura, not intractable, without status migrainosus; Z11.1 Encounter for screening for respiratory tuberculosis
CPT/HCPCS: 36415; 84443; 86481

== ENCOUNTER 2024-08-10 00:48 | Emergency (ER) | payer OTHER, SELFPAY ==
--- NOTE | ~2024-08-10 | CT_ITS ---
EXAMINATION: CT ABDOMEN AND PELVIS WITHOUT CONTRAST CLINICAL INFORMATION: Left flank pain. COMPARISON: CT abdomen pelvis 11/15/2013. TECHNIQUE: Multidetector volumetric imaging was performed from the superior aspect of the liver through the pubic symphysis. Sagittal and coronal reformatted images were obtained on the technologist's workstation. This CT examination was performed using dose optimization techniques as appropriate, variously including the following: *Automated exposure control *Adjustment of mA and/or kV according to patient size (this includes techniques or standardized protocols for targeted exams where dose is matched to indication/reason for exam; i.e. extremities or head) *Use of iterative reconstruction technique DLP: 816 mGy-cm FINDINGS: LUNG BASES: The visualized lung bases are unremarkable. LIVER, GALLBLADDER, AND BILIARY TREE: The liver is normal in size, shape, and attenuation. No focal hepatic lesion or biliary ductal dilatation is present. The gallbladder is unremarkable with no evidence of radiopaque gallstones, gallbladder wall thickening, or obvious pericholecystic inflammatory changes. PANCREAS: Unremarkable. SPLEEN: Unremarkable. ADRENAL GLANDS: Unremarkable. KIDNEYS AND URETERS: No hydronephrosis or perinephric inflammatory changes. A single 1 mm calculus is present in the region of the distal left ureter approximately 2 cm proximal to the left ureteral vesicular junction (series 4 image 61). This finding may represent a phlebolith in close proximity to the distal left ureter or a left ureteral calculus. No nephrolithiasis identified. BLADDER: Unremarkable. GASTROINTESTINAL TRACT: Normal appearance of the appendix. No free intraperitoneal fluid or gas collections. No intestinal dilatation or mural thickening. Normal appearance of the stomach and duodenum ABDOMINAL WALL: No significant hernia is appreciated. LYMPH NODES: Normal. VASCULAR: Unremarkable. PELVIC VISCERA: Intrauterine device is noted. No adnexal lesions visualized. OSSEOUS STRUCTURES: No suspicious skeletal abnormalities. CT/CT abdomen pelvis wo IV con IMPRESSION: 1. Solitary 1 mm calculus in the region of the distal left ureter approximately 2 cm proximal to the left ureteral vesicular junction. This finding may represent a phlebolith in close proximity to the distal left ureter or a left ureteral calculus. No hydronephrosis or perinephric inflammatory changes. No nephrolithiasis. 2. Normal appendix. Electronically signed by: Ludwig Barker MD 08/10/2024 03:56 AM [facility]
[2024-08-10 00:51] VITALS: BP 112/71; PULSE 95; RESP 18; TEMP 36.7; O2SAT 100; BMI 33.0
[2024-08-10 01:53] VITALS: BP 130/67; PULSE 87; RESP 16; TEMP 36.6; O2SAT 97
--- NOTE | 2024-08-10 02:04 | ED_ITS ---
HPI - Back Pain/Injury General Chief Complaint: Back Pain/Injury Stated Complaint: back pain Time Seen by Provider: 08/10/24 01:44 Source: patient Mode of arrival: ambulatory Limitations: no limitations History of Present Illness ED Provider: CHANELLE ALCOCER Narrative: 33 yo female with no sig PMH not on thinners, no known trauma, no b/b incontinence, no saddle anesthesia but sharp pain with movements in lower lumbar spine - hurts to move, does not hurt to touch. She has never felt like this before. NO hx of kidney stones. MD elicited complaint: back pain Onset (ago): hour(s) (several) Timing: constant Severity: moderate Similar Symptoms Previously: No Quality: sharp Location: lumbar spine Radiation: none Exacerbating factors: movement Relieving factors: none Context: unknown Associated symptoms: denies other symptoms Treatments prior to arrival: NSAIDS Work related injury: No Related Data Previous Rx's ?Medication ?Instructions ?Recorded acetaminophen 500 mg tablet 1,000 mg (2 x 500 mg) PO QID PRN 09/04/22 (Tylenol Extra Strength) fever or pain #14 tabs cyclobenzaprine 10 mg tablet 10 mg PO Q8H #14 tabs 09/04/22 ibuprofen 800 mg tablet 800 mg PO Q8H PRN pain #14 tabs 09/04/22 ondansetron HCl 4 mg tablet 4 mg PO Q8H #14 tabs 09/04/22 oseltamivir 75 mg capsule (Tamiflu) 75 mg PO BID 5 days #10 caps 09/04/22 cyclobenzaprine 10 mg tablet 10 mg PO TID PRN muscle spasm #20 08/10/24 tabs ketorolac 10 mg tablet 10 mg PO TID PRN pain 5 days #15 08/10/24 tabs Allergies Allergy/AdvReac Type Severity Reaction Status Date / Time No Known Allergies Allergy Unverified 08/10/24 00:53 Review of Systems 2 Review of Systems: Constitutional : No Weight loss, No Fever, No Chills, ENT/Mouth : No Hearing loss, No Ear Pain, No Nasal Congestion, No Sinus Pain, No Hoarseness, No sore throat, No Rhinorrhea, No Swallowing Difficulty Cardiovascular : No Chest Pain, No SOB Respiratory : No Cough, No Dyspnea Gastrointestinal : No Nausea, No Vomiting, No Diarrhea, No abdominal Pain, No Hematochezia, No Melena Genitourinary : No Dysuria, No Urinary Frequency, No Hematuria, No Urinary Incontinence, Musculoskeletal : positive back pain Skin : No Skin Lesions, No rash Neuro : No Weakness, No Numbness, No Paresthesias, no loss of bowel or bladder incontinence, no saddle anesthesia All other systems reviewed and are negative [facility] Past Medical History Attestation statement: The following information was validated with the patient. Source: old records reviewed Medical History (Updated 08/10/24 @ 04:22 by Mary Linder DO) No pertinent past medical history Social History Social History (Updated 08/10/24 @ 02:29 by Mary Linder DO) Patient Tobacco Use Status: Never used Tobacco Advance Directives: No Advance Directives Information Provided: Yes Physical Exam 2 Vital Signs: Vital Signs: Last Vital Signs Temp 97.8 F 08/10/24 01:53 Pulse 87 08/10/24 01:53 Resp 16 08/10/24 01:53 BP 130/67 08/10/24 01:53 Pulse Ox 97 08/10/24 01:53 O2 Del Method Room Air 08/10/24 01:53 BMI result Body Mass Index 33.0 Appearance: Alert. Oriented X3. No acute distress. Eyes: Pupils equal, round and reactive to light. ENT: Pharynx normal. Neck: Normal inspection. Neck supple. CVS: Normal heart rate and rhythm. Pulses normal. Respiratory: No respiratory distress. Breath sounds normal. Abdomen: Soft and nontender. Back: no ttp but does hurt to move Skin: Skin warm and dry. Normal skin color. Normal skin turgor. Extremities: No lower extremity edema. No calf ttp Neuro: Oriented X 3. No motor deficit. No sensory deficit. Medications Administered Discontinued Medications Generic Name Dose Route Start Last Admin Trade Name Freq PRN Reason Stop Dose Admin Cyclobenzaprine HCl 10 mg 08/10/24 01:55 08/10/24 02:37 Cyclobenzaprine Hcl 10 Mg Tablet PO 08/10/24 01:56 10 mg ONCE ONE Administration Ketorolac Tromethamine 15 mg 08/10/24 01:55 08/10/24 02:37 Ketorolac Tromethamine 15 Mg/Ml Vial IVPUSH 08/10/24 01:56 15 mg ONCE ONE Administration Medical Decision Making Medical Decision Making MDM Narrative: 33 yo female with no sig PMH not on thinners now here with L flank pain that was atrumatic and area it not ttp at this time will obtain UA, CT scan for renal colic, IV toradol for pain. Possible MSK vs renal colic Differential Diagnosis Differential Diagnoses: The differential diagnosis associated with the presentation includes Possible MSK vs renal colic Admission/Observation Consideration of admission/observation: Escalation of care including admission/observation considered pain improved no UTI and no obstruction Lab Data MDM Lab Attestation statement: I reviewed the patient's lab results. 08/10/24 02:24 08/10/24 02:24 Labs: Lab Results 08/10/24 08/10/24 Range/Units 02:23 02:24 WBC 11.6 H (4.8-10.8) X10*3/uL RBC 4.15 L (4.20-5.50) X10*6/uL Hgb 12.0 (12.0-16.0) g/dl Hct 35.1 L (37.0-47.0) % MCV 84.6 (80.0-98.0) fL MCH 28.9 (27.0-33.0) pg MCHC 34.2 (31.0-35.0) g/dl RDW 12.6 (11.0-16.0) % Plt Count 251 (160-400) X10*3/uL MPV 10.4 (9.4-12.3) fL Immature Gran % (Auto) 0.3 (0.0-0.4) % Neut % (Auto) 78.9 H (45-73) % Lymph % (Auto) 14.0 L (20-40) % [place] % (Auto) 6.3 (2-11) % Eos % (Auto) 0.3 (0-4) % Baso % (Auto) 0.2 (0-2) % Lymph # (Auto) 1.6 (1.2-4.9) X10*3/uL [place] # (Auto) 0.7 (0.1-1.2) X10*3/uL Eos # (Auto) 0.0 (0.0-0.4) X10*3/uL Baso # (Auto) 0.0 (0.0-0.2) X10*3/uL Abs Immat Gran (auto) 0.03 (0.00-0.03) X10*3/uL Absolute Neuts (auto) 9.1 H (2.0-8.3) x10*3/uL Absolute Nucleated RBC 0.000 (0.0-0.012) X10*3/uL Nucleated RBC % (auto) 0.0 (0.0-0.2) /100WBC Sodium 138 (135-145) mmol/L Potassium 3.8 (3.3-5.1) mmol/L Chloride 105 (96-108) mmol/L Carbon Dioxide 22 (22-29) mmol/L Anion Gap 15 (12-20) BUN 10 (9-16) mg/dL Creatinine 0.75 (0.5-1.4) mg/dL Estim Creat Clear Calc 127.8 Estimated GFR > 60 Random Glucose 92 (60-115) mg/dL Calcium 9.5 (8.4-10.2) mg/dL Magnesium 1.9 (1.6-2.6) mg/dL Total Bilirubin 0.8 (0.0-1.0) mg/dL Direct Bilirubin 0.2 (0.0-0.5) mg/dL AST 21 (5-31) U/L ALT 28 (0-31) U/L Alkaline Phosphatase 61 (39-117) U/L Total Protein 7.9 (6.5-8.0) g/dL Albumin 4.4 (3.5-5.0) g/dL Lipase 15 (8-78) U/L Urine Color Yellow Urine Appearance Clear Urine pH 6.0 (5.0-9.0) Ur Specific [place] 1.010 (1.005-1.025) Urine Protein Negative (Neg-Trace) mg/dL Urine Glucose (UA) Negative (Negative) mg/dL Urine Ketones 15 (Negative) mg/dL Urine Blood Negative (Negative) Urine Nitrite Negative (Negative) Ur Leukocyte Esterase Trace H (Negative) Urine RBC 0-2 (0-2) /HPF Urine WBC 0-5 (0-5) /HPF Ur Squamous Epith Cells 0-2 (0-2) /HPF Urine Bacteria None Seen (None Seen) Hyaline Casts 0-2 (0-2) /LPF Urine Test NEGATIVE (NEGATIVE) Independent Interpretation I performed an independent interpretation of an: CT Scan (?stone) Radiology Impression Discussion of test interpretation with radiology: I have reviewed the radiologist's reading. Prescription Management I considered prescription management with: Pain Medication and Other Discharge Plan Discharge Clinical Impression: Renal colic on left side Strain of lumbar region Qualifiers: Encounter type: initial encounter Qualified Code(s): S39.012A - Strain of muscle, fascia and tendon of lower back, initial encounter Patient Disposition: Home, Self-Care Instructions: Renal Colic (ED), Acute Low Back Pain (ED) Additional Instructions: return for fevers, worsening pain, vomiting or any other concerns stay hydrated and drink plenty of fluids CT/CT abdomen pelvis wo IV con IMPRESSION: 1. Solitary 1 mm calculus in the region of the distal left ureter approximately 2 cm proximal to the left ureteral vesicular junction. This finding may represent a phlebolith in close proximity to the distal left ureter or a left ureteral calculus. No hydronephrosis or perinephric inflammatory changes. No nephrolithiasis. 2. Normal appendix. Prescriptions: New cyclobenzaprine 10 mg tablet 10 mg PO TID PRN (Reason: muscle spasm) Qty: 20 0RF ketorolac 10 mg tablet 10 mg PO TID PRN (Reason: pain) 5 Days Qty: 15 0RF Rx Instructions: given IV toradol in department No Action ibuprofen 800 mg tablet 800 mg PO Q8H PRN (Reason: pain) Qty: 14 0RF acetaminophen [Tylenol Extra Strength] 500 mg tablet 1,000 mg PO QID PRN (Reason: fever or pain) Qty: 14 0RF cyclobenzaprine 10 mg tablet 10 mg PO Q8H Qty: 14 0RF ondansetron HCl 4 mg tablet 4 mg PO Q8H Qty: 14 0RF oseltamivir [Tamiflu] 75 mg capsule 75 mg PO BID 5 Days Qty: 10 0RF Referrals: [facility] [Provider Group] Stand Alone Forms: Work/School Release Print Language: Mohawk
[2024-08-10 02:29] LABS: Basophils Percent Auto 0.2 % (0-2); Eosinophils Percent Auto 0.3 % (0-4); Hematocrit 35.1 % (37.0-47.0); Imm Gran Abs Auto 0.03 X10*3/uL (0.00-0.03); Imm Gran Pct Auto 0.3 % (0.0-0.4); Lymphocytes Absolute Auto 1.6 X10*3/uL (1.2-4.9); MANUAL DIFF FLAG NO; Mean Corpuscular HGB Conc 34.2 g/dl (31.0-35.0); Mean Corpuscular Hemoglobin 28.9 pg (27.0-33.0); Mean Corpuscular Volume 84.6 fL (80.0-98.0); Mean Platelet Volume 10.4 fL (9.4-12.3); Monocytes Absolute Auto 0.7 X10*3/uL (0.1-1.2); Monocytes Percent Auto 6.3 % (2-11); Neutrophils Absolute Auto 9.1 x10*3/uL (2.0-8.3); Neutrophils Percent Auto 78.9 % (45-73); Platelet Count 251 X10*3/uL (160-400); Red Blood Count 4.15 X10*6/uL (4.20-5.50); Red Cell Distribution Width 12.6 % (11.0-16.0); White Blood Count 11.6 X10*3/uL (4.8-10.8)
[2024-08-10 02:31] LABS: Appearance Urine Clear; Color Urine Yellow; Glucose Urine UA Negative (Negative); Leukocyte Esterase Urine Trace (Negative); Nitrite Urine Negative (Negative); UMIC TRIGGER UACC YES; Urine Blood Negative (Negative); Urine Ketones 15 mg/dL (Negative); Urine Protein Negative (Neg-Trace)
[2024-08-10 02:32] LABS: UPreg QC Valid YES; Urine Pregnancy NEGATIVE (NEGATIVE)
[2024-08-10] MEDS: Ketorolac Tromethamine 15 MG/ML VIAL IVPUSH (02:37)
[2024-08-10] MEDS: Cyclobenzaprine HCl 10 MG TABLET PO (02:37)
[2024-08-10 02:44] LABS: Bacteria Urine None Seen (None Seen); Hyaline Casts Urine 0-2 /LPF (0-2); RBC Urine 0-2 /HPF (0-2); Squamous Epithelial Cell Urine 0-2 /HPF (0-2); WBC Urine 0-5 /HPF (0-5)
[2024-08-10 02:56] LABS: Albumin Level 4.4 g/dL (3.5-5.0); Anion Gap 15 (12-20); Aspartate Amino Transferase 21 U/L (5-31); Bilirubin Direct 0.2 mg/dL (0.0-0.5); Bilirubin Total 0.8 mg/dL (0.0-1.0); Blood Urea Nitrogen 10 mg/dL (9-16); Calcium 9.5 mg/dL (8.4-10.2); Carbon Dioxide 22 mmol/L (22-29); Chloride 105 mmol/L (96-108); Creatinine Clr Calc Pharmacy 127.8; Estimated Glomerular Filt Rate > 60; Glucose Random 92 mg/dL (60-115); Lipase 15 U/L (8-78); Magnesium 1.9 mg/dL (1.6-2.6); Potassium 3.8 mmol/L (3.3-5.1); Sodium 138 mmol/L (135-145); Total Protein 7.9 g/dL (6.5-8.0)
[2024-08-10 02:59] LABS: Alanine Aminotransferase 28 U/L (0-31); Alkaline Phosphatase 61 U/L (39-117)
[2024-08-10 04:18] VITALS: BP 130/67; PULSE 62; RESP 16; TEMP 36.8; O2SAT 97
[2024-08-10 05:12] VITALS: BP 130/67; PULSE 62; RESP 16; TEMP 36.8; O2SAT 97
--- OUTSIDE RECORDS SUMMARY | 2024-08-10 22:34 | XMS_ITS | Data Portability ---
Author Organization SRINIVASA [facility] Address [address] [place] [address] Care Team Providers Care Oracle Identity Management Consultant Name Role Phone THA HILLIARD Primary Care Provider [phone] Assessment No assessment recorded. Plan of Treatment Reminders Order Date Submit Date Provider Last Modified By Organization Details Last Modified Time Details Appointments None recorded. Lab rapid strep group A, throat 2022 023 [email or web address] [facility], [address] [place] [address], [phone], 14:58:49 streptococc us group A, culture, throat 2022 023 [facility], [address] [place] [address], [place], [address], 06:07:52 Referral None recorded. Procedures None recorded. Surgeries None recorded. Imaging None recorded. Medication Orders amoxicillin 500 mg capsule 2022 023 M[facility]INO [facility], [address] [place], [address], 14:58:51 Patient TargetsNo targets recorded. Patient Instructions Encounter Date Encounter Id Patient Instructions Last Modified By Organization Details Last Modified Time 02/01/2023 [id number] sore throat: car e instructions Not available 02/01/2023 14:58:49 Your rapid strep is negative but given your symptoms and findings it is still very likley you have strep. We are going to send a culture to the lab but we are treating you with antibiotics. Please take them as directed and finish the entire course. You can use tylenol and / or ibuprofen to help with pain and fever. We will notify you when results are available. Follow up with your PCP. Not available 02/01/2023 15:02:54 Reason for Referral None Reported. Results Created Date Observation Date Name Description Value Unit Range Abnormal Flag Note LastModifiedBy Organization Detail LastModifiedTime 02/02/2002/03/2023 BETA STREP GP A CULTU RE beta strep gp A culture NEGATI VE Refer ence Range : Negat leena Not Available [facility] ([facility]) [address] [facility], [place], [address], 02/04/2023 06:07:52 02/02/2002/01/2023 rapid strep group A, throa t Unknown Analyte Normal = Negati ve Not Available [address], [id number], 02/01/2023 13:39:48 02/02/2002/01/2023 rapid strep group A, throa t Unknown Analyte negati ve Not Available [address] [place] [address], [phone], 02/01/2023 13:39:48 Result Notes None recorded. Problems Name Problem SNOMED Code Status Onset Date Resolution Date Notes Provider Name and Address Organization Details Recorded Time Disorder of thyroid gland 47504703 Active 023 BETTY santos PA - [facility] 13:38:36 Migraine 54247883 Active 023 BETTY santos PA - [facility] 13:38:43 Problem Notes None recorded. Medical Equipment None Reported. Allergies No known drug allergies Medications Name Sig Start Date Stop Date Status Note LastModified by Organization Details LastModified Time cyclobenzap rine 10 mg tablet TAKE ONE TABLET BY MOUTH EVERY 8 HOURS 02/01 completed Not Available Not Available Not Available amoxicillin 500 mg capsule Take 1 capsule twice a day by oral route for 10 days. 2022 active Not Available Not Available Not Avai lable ibuprofen 800 mg tablet TAKE ONE TABLET BY MOUTH EVERY 8 HOURS NEEDED FOR PAIN active Not Available Not Available No t Available sumatriptan 100 mg tablet TAKE 1 TABLET BY MOUTH NEEDED FOR MIGRAINE HEADACHES . 02/01 completed Not Available Not Available Not Available ondansetron HCl 4 mg tablet TAKE ONE TABLET BY MOUTH EVERY 8 HOURS 02/01 completed Not Available Not Available Not Available acetaminoph en 500 mg tablet TAKE TWO TABLETS BY MOUTH FOUR TIMES A DAY NEEDED FOR PAIN OR FEVER 02/01 completed Not Available Not Available Not Available amitriptyli ne 10 mg tablet TAKE ONE TABLET BY MOUTH AT BEDTIME 02/01 completed Not Available Not Available Not Available oseltamivir 75 mg capsule TAKE ONE CAPSULE BY MOUTH TWICE A DAY FOR 5 DAYS 02/01 completed Not Available Not Available Not Available ketoconazol e 2 % topical cream APPLY EXTERNALL Y TWO TIMES A DAY 02/01 completed Not Available Not Available Not Available levothyroxi ne 112 mcg tablet TAKE ONE TABLET BY MOUTH EVERY DAY active Not Available Not Available No t Available EC-Naproxen 500 mg tablet,raman yed release TAKE ONE TABLET BY MOUTH TWICE A DAY 02/01 completed Not Available Not Available Not Available Vitals Date Recorded Body height Body mass index (BMI) Body weight Oxygen saturation Oxygen saturation in Arterial blood by Pulse oximetry Heart rate Respiratory rate Body temperature Systolic blood pressure Diastolic blood pressure Provider Name and Address Organization Details Last Updated DateTime 3 170.18 cm 36.8 kg/m2 537775. 21 g 100 % 100 % 75 /min 16 /min 97.6 [degF] 125 mm[Hg] 88 mm[Hg] BETTY COOK PA - [facility] 13:41:52 Social History Question Answer Notes LastModified by Organizat ion Details LastModified Time Tobacco Smoking Status Never Smoker BETTY santos PA - [facility] 02/01/2023 13:39:17 What Is Your Level Of Alcohol Consumption? None Information not available 02/01/2023 Are You Currently Employed? Yes Information not available 02/01/2023 Do You Use Any Illicit Or Recreational Drugs? No Information not available 02/01/2023 Have You Recently Traveled Abroad? No Information not available 02/01/2023 Are You Currently In School? Yes Information not available 02/01/2023 Do You Or Have You Ever Used Any Other Forms Of Tobacco Or Nicotine? No Information not available 02/01/2023 Sex: Unknown Functional Status None recorded. Mental Status None recorded. Family History Relationship Description Onset Age of this Age Resolved Age Notes LastModified by Organization Details LastModified Time Mother Diabetes mellitus Not available 2022 13:39:02 Medical History No medical history recorded. Gynecological History Statement/Question Response Date of LMP 01/18/2023 Is there any chance of ? No Obstetrics History GPAL:G 0 P 0 0 0 0 Immunizations Vaccine Type Date Status Note Provider Nam e and Address Organization Details Recorded Time Influenza, MDCK, quadrivalent, preservative 8 completed BETTY JOYCE null, PA - [facility] 02/01/2023 13:37:16 COVID-19, mRNA, LNP-S, PF, 100 mcg/0.5mL dose or 50 mcg/0.25mL dose 2 completed BETTY JOYCE null, PA - [facility] 02/01/2023 13:37:16 COVID-19, mRNA, LNP-S, PF, 30 mcg/0.3 mL dose 1 completed BETTY JOYCE null, PA - [facility] 02/01/2023 13:37:16 COVID-19, mRNA, LNP-S, PF, 30 mcg/0.3 mL dose 1 completed BETTY JOYCE null, PA - [facility] 02/01/2023 13:37:16 Tdap 1 completed BETTY JOYCE null, PA - [facility] 02/01/2023 13:37:16 Tdap 7 completed BETTY JOYCE null, PA - [facility] 02/01/2023 13:37:16 Past Encounters Encounter ID Performer Location Encounter Start Date Encounter Closed Date Diagnosis/Indication Diagnosis SNOMED-CT Code Diagnosis ICD10 Code [id number] SRINIVASA Beatty [address] [address] 02/01/2023 12:46:49 02/01/2023 15:05:29 Acute pharyngitis 478266179 J02.9 Health Concerns Section Related Observation LastModified by Organization Detai ls LastModified Time None Recorded Concern Status LastModified by Organization Details LastModified Time None Recorded Advance Directives Directive None Recorded Payers Encounter Date Sequence Insurance Name Policy Number Policy Guillen Covered Member ID Guillen Member ID Guarantor Name 02/01/2023 1 [facility] (MEDICAID HMO) [id number] Jackie Keller [id number] Jackie Keller Notes Date Note Type Note Provider Name and Address Organization Details Recorded Time 02/02/20 23 text/htm l Sore throatReported bypatient.Source of patient informationInformation obtained from patient; Patient arrived at Urgent Care ambulatory Location:throat Severity:moderate Quality:sharp; hurts to swallow Onset/Timin days Associated Symptoms:no cough; no shortness of breath; no wheezing; no vomiting; no nausea;fever; body aches SRINIVASA Mendez [facility] [place], [address], PA - [facility] 02/01/2023 15:03:41 OBGyn Episode No OBEpisode recorded.
== END 2024-08-10 05:12 | disposition home or self-care (01) ==
PROVIDERS: Emergency Provider Emergency Medicine; PCP Internal Medicine
DX: N20.0 Calculus of kidney (principal); S39.012A Strain of muscle, fascia and tendon of lower back, initial encounter; X50.0XXA Overexertion from strenuous movement or load, initial encounter; Y93.E9 Activity, other interior property and clothing maintenance; Y92.019 Unspecified place in single-family (private) house as the place of occurrence of the external cause; Y99.9 Unspecified external cause status
CPT/HCPCS: 36415; 74176; 80048; 80076; 81001; 81025; 83690; 83735; 85025; 96374; 99284; J1885

== ENCOUNTER 2024-08-12 08:56 | Emergency (ER) | payer OTHER, SELFPAY ==
--- NOTE | ~2024-08-12 | US_ITS ---
EXAMINATION: US RETROPERITONEAL LIMITED, LEFT(RENAL ONLY) CLINICAL INFORMATION: Left flank pain. COMPARISON: CT abdomen and pelvis dated August 10, 2024. TECHNIQUE: Real-time imaging of the left kidney was performed. FINDINGS: LEFT KIDNEY: 9.7 x 4.3 x 5.2 cm (SAG x AP x TRV). The kidney is normal in size, contour, and echogenicity. Renal cortical thickness is normal. No calculi or focal parenchymal lesions. No hydronephrosis. A left ureteral jet is demonstrated. US/US renal LT IMPRESSION: The left kidney is normal in appearance. No hydronephrosis. Electronically signed by: Floyd Rush DO 08/12/2024 03:37 PM EST
--- OUTSIDE RECORDS SUMMARY | 2024-08-12 08:59 | XMS_ITS | Data Portability ---
Author Organization [facility]INIVASA [facility] Address [address] [place] [address] Care Team Providers Care Tugboat Captain Name Role Phone THA HILLIARD Primary Care Provider [phone] Assessment No assessment recorded. Plan of Treatment Reminders Order Date Submit Date Provider Last Modified By Organization Details Last Modified Time Details Appointments None recorded. Lab rapid strep group A, throat [email or web address] [facility], [address] [place] [address], [phone], 14:58:49 streptococc us group A, culture, throat 2022 023 [facility], [address] [place] [address], [place], [address], 06:07:52 Referral None recorded. Procedures None recorded. Surgeries None recorded. Imaging None recorded. Medication Orders amoxicillin 500 mg capsule 2022 023 [facility], [address] [place], [address], 14:58:51 Patient TargetsNo targets recorded. Patient Instructions Encounter Date Encounter Id Patient Instructions Last Modified By Organization Details Last Modified Time 02/01/2023 [id number] sore throat: car e instructions Not available [...] Range : Negat leena Not Available [facility] ([facility]) [address] [facility], [place], [address], 02/04/2023 06:07:52 02/02/2002/01/2023 rapid strep group A, throa t Unknown Analyte Normal = Negati ve Not Available [address], [address], 02/01/2023 13:39:48 02/02/2002/01/2023 rapid strep group A, throa t Unknown Analyte negati ve Not Available [address] [place] [address], [address], 02/01/2023 13:39:48 Result Notes None recorded. Problems Name Problem SNOMED Code Status Onset Date Resolution Date Notes Provider Name and Address Organization Details Recorded Time Disorder of thyroid gland 81651595 Active 023 BETTY santos PA - [facility] 13:38:36 Migraine 66270579 Active 023 [facility]antos [facility] - [facility] [...] Updated DateTime 3 170.18 cm 36.8 kg/m2 761780. 21 g 100 % 100 % 75 [...] Diagnosis/Indication Diagnosis SNOMED-CT Code Diagnosis ICD10 Code [id number] SRINIVASA Beatty [address] [address] 02/01/2023 12:46:49 02/01/2023 15:05:29 Acute pharyngitis 819743508 J02.9 Health Concerns Section Related Observation LastModified by Organization Detai ls LastModified Time None Recorded Concern Status LastModified by Organization Details LastModified Time None Recorded Advance Directives Directive None Recorded Payers Encounter Date Sequence Insurance Name Policy Number Policy Guillen Covered Member ID Guillen Member ID Guarantor Name 02/01/2023 1 [facility] - HE[facility] NET PLAN (MEDICAID HMO) [id number] Jackie Keller [id number] Jackie Keller Notes Date Note Type Note Provider Name and Address Organization Details Recorded Time 02/02/20 23 text/htm l Sore throatReported bypatient.Source of patient informationInformation obtained from patient; Patient arrived at Urgent Care ambulatory Location:throat Severity:moderate Quality:sharp; hurts to swallow Onset/Timin days Associated Symptoms:no cough; no shortness of breath; no wheezing; no vomiting; no nausea;fever; body aches SRINIVASA Mendez [facility] [place], [address], PA - [facility] 02/01/2023 15:03:41 OBGyn Episode No OBEpisode recorded.
[2024-08-12 09:08] VITALS: BP 122/75; PULSE 77; RESP 18; TEMP 36.4; O2SAT 100; BMI 32.9
[2024-08-12 09:26] LABS: MANUAL DIFF FLAG NO
[2024-08-12 09:28] LABS: Basophils Percent Auto 0.3 % (0-2); Eosinophils Absolute Auto 0.1 X10*3/uL (0.0-0.4); Eosinophils Percent Auto 0.7 % (0-4); Hematocrit 35.9 % (37.0-47.0); Hemoglobin 12.1 g/dl (12.0-16.0); Imm Gran Abs Auto 0.02 X10*3/uL (0.00-0.03); Imm Gran Pct Auto 0.3 % (0.0-0.4); Lymphocytes Absolute Auto 1.5 X10*3/uL (1.2-4.9); Lymphocytes Percent Auto 21.6 % (20-40); Mean Corpuscular HGB Conc 33.7 g/dl (31.0-35.0); Mean Corpuscular Hemoglobin 28.7 pg (27.0-33.0); Mean Corpuscular Volume 85.3 fL (80.0-98.0); Mean Platelet Volume 10.5 fL (9.4-12.3); Monocytes Absolute Auto 0.4 X10*3/uL (0.1-1.2); Monocytes Percent Auto 5.5 % (2-11); Neutrophils Absolute Auto 5.1 x10*3/uL (2.0-8.3); Neutrophils Percent Auto 71.6 % (45-73); Platelet Count 248 X10*3/uL (160-400); Red Blood Count 4.21 X10*6/uL (4.20-5.50); Red Cell Distribution Width 12.5 % (11.0-16.0); White Blood Count 7.1 X10*3/uL (4.8-10.8)
[2024-08-12 09:30] LABS: Appearance Urine Clear; Color Urine Yellow; Glucose Urine UA Negative (Negative); Leukocyte Esterase Urine Small (1+) (Negative); Nitrite Urine Negative (Negative); PH 5.5 (5.0-9.0); UMIC TRIGGER UACC YES; Urine Blood Trace (Negative); Urine Ketones Negative (Negative); Urine Protein Negative (Neg-Trace)
[2024-08-12 09:40] LABS: Bacteria Urine None Seen (None Seen); Hyaline Casts Urine 0-2 /LPF (0-2); RBC Urine 0-2 /HPF (0-2); Squamous Epithelial Cell Urine 0-2 /HPF (0-2); UACC Culture Trigger YES; WBC Urine 0-5 /HPF (0-5)
[2024-08-12 09:42] LABS: Anion Gap 10 (12-20); Blood Urea Nitrogen 10 mg/dL (9-16); Calcium 9.3 mg/dL (8.4-10.2); Carbon Dioxide 25 mmol/L (22-29); Chloride 107 mmol/L (96-108); Creatinine Clr Calc Pharmacy 138.6; Estimated Glomerular Filt Rate > 60; Glucose Random 91 mg/dL (60-115); Potassium 3.8 mmol/L (3.3-5.1); Sodium 138 mmol/L (135-145)
--- NOTE | 2024-08-12 11:42 | ED.FEMALEGU ---
HPI - Female Genitourinary General Chief complaint: Urogenital-Female Stated complaint: back pain Time Seen by Provider: 08/12/24 11:42 Source: patient Mode of arrival: ambulatory Limitations: no limitations History of Present Illness ED Provider: KYREE PARK PA-C HPI Narrative: 33 year old female with presents to the ED today for evaluation of left flank pain x3 days. Patient reports constant pain to her left flank, waxing and waning in severity. Reports 10/10 pain while lying in bed last night which has since improved after taking toradol and flexeril. Patient was seen in our ED 2 days ago, diagnosed with a left ureteral stone/renal colic and was discharged home with Flexeril and Toradol. She reports pain once medications were off, prompting her to come back to the ED for further evaluation. Pain is not worse since she was evaluated in ED 2 days ago. She has not yet followed up with urology. She is not have any history of renal stones. She denies fever, chills, nausea or vomiting, abdominal pain, dysuria, hematuria, vaginal discharge. Denies chance of . Related Data Previous Rx's ?Medication ?Instructions ?Recorded acetaminophen 500 mg tablet 1,000 mg (2 x 500 mg) PO QID PRN 09/04/22 (Tylenol Extra Strength) fever or pain #14 tabs cyclobenzaprine 10 mg tablet 10 mg PO Q8H #14 tabs 09/04/22 ibuprofen 800 mg tablet 800 mg PO Q8H PRN pain #14 tabs 09/04/22 ondansetron HCl 4 mg tablet 4 mg PO Q8H #14 tabs 09/04/22 oseltamivir 75 mg capsule (Tamiflu) 75 mg PO BID 5 days #10 caps 09/04/22 cyclobenzaprine 10 mg tablet 10 mg PO TID PRN muscle spasm #20 08/10/24 tabs ketorolac 10 mg tablet 10 mg PO TID PRN pain 5 days #15 08/10/24 tabs Allergies Allergy/AdvReac Type Severity Reaction Status Date / Time No Known Allergies Allergy Unverified 08/12/24 09:09 Review of Systems Review of Systems: Constitutional: No fever, chills, fatigue, night sweats, weight changes ENT/Mouth: No ear pain, hearing loss, nasal congestion, sinus pain, rhinorrhea, sore throat Eyes: No eye pain, swelling, redness, vision changes, discharge Cardio: No chest pain, palpitations, CARTY, orthopnea, peripheral edema Pulm: No SOB, cough, sputum, wheezing, dyspnea, hemoptysis GI: No nausea, vomiting, hematemesis, abdominal pain, diarrhea, constipation, hematochezia, melena : No irregular bleeding, dysuria, frequency, urgency, hesitancy, hematuria, urinary flow changes, urinary incontinence or retention, +left flank pain MSK: No back pain, neck pain, joint pain, myalgias Skin: No lesions, rashes Neuro: No weakness, numbness, paresthesias, LOC, dizziness, headache Psych: No anxiety/panic, depression, SI/HI, AH/VH All other systems reviewed and are negative. [facility] Past Medical History Attestation statement: The following information was validated with the patient. Source: old records reviewed and nursing notes reviewed Medical History No pertinent past medical history Social History Social History Patient Tobacco Use Status: Never used Tobacco Physical Exam Vital Signs: Vital Signs: Last Vital Signs Temp 97.8 F 08/12/24 15:51 Pulse 72 08/12/24 15:51 Resp 18 08/12/24 15:51 BP 118/73 08/12/24 15:51 Pulse Ox 100 08/12/24 15:51 O2 Del Method Room Air 08/12/24 15:51 BMI result Body Mass Index 32.9 vital signs stable General: Well appearing, in no acute distress. Skin: Warm, dry, intact. No rashes or lesions. Head: Normocephalic, atraumatic. Cardiac: Chest wall symmetric. RRR Lungs: Normal respiratory effort without accessory muscle use. CTA bilaterally Abdomen: Soft, non-tender, non-distended. No rebound tenderness or guarding. Positive BS x4. No CVAT. Back: No midline spinous or paraspinal tenderness. No step off deformity. Ext: Upper and lower extremities atraumatic, without tenderness, deformity, swelling or erythema Neuro: AOx3. Normal speech. Ambulating with steady gait. Psych: Appropriate mood and affect. Responds appropriately to questions. Course Course Course Narrative: CBC without leukocytosis or left shift. No anemia. H&H stable. Chemistry without acute electrolyte abnormality requiring intervention. No YARA. Urine is negative for infection. Urine obtained 2 days ago negative. I did review CT scan obtained 2 days ago which shows 1 mm calculus within the region of the distal left ureter. The ultrasound of your left kidney today does not show evidence of hydronephrosis. No calculi within the kidney itself. > patient has continued to deny any pain in the ED. she has been sitting comfortably on the exam bed. Reports taking Toradol this morning prior to arrival in ED with improvement. I have suspicion that she was passing a kidney stone. Advised to continue Toradol outpatient. Referral to Urology provided. Patient has remained stable throughout ED visit today. Discussed worrisome signs and symptoms and when to return to the ED. All questions answered at this time. Patient is agreeable with disposition and stable for discharge. Medical Decision Making Medical Decision Making [facility] Narrative: 33 year old female with presents to the ED today for evaluation of left flank pain x3 days. Patient reports constant pain to her left flank, waxing and waning in severity. Vital signs are stable. She is nontoxic-appearing and in no acute distress. Sitting comfortably on the exam bed. Exam does not demonstrate CVAT. Her abdomen exam is benign. She is in no obvious discomfort. Differential diagnosis includes renal colic, nephrolithiasis, hydronephrosis, pyelonephritis, urinary tract infection, YARA Plan for repeat labs, renal ultrasound, urinalysis and re-evaluation. Differential Diagnosis Differential Diagnoses: The differential diagnosis associated with the presentation includes as above Admission/Observation Not indicated. Lab Data [facility] Lab Attestation statement: I reviewed the patient's lab results. as above. 08/12/24 09:19 08/12/24 09:19 Labs: Lab Results 08/12/24 Range/Units 09:19 WBC 7.1 (4.8-10.8) X10*3/uL RBC 4.21 (4.20-5.50) X10*6/uL Hgb 12.1 (12.0-16.0) g/dl Hct 35.9 L (37.0-47.0) % MCV 85.3 (80.0-98.0) fL MCH 28.7 (27.0-33.0) pg MCHC 33.7 (31.0-35.0) g/dl RDW 12.5 (11.0-16.0) % Plt Count 248 (160-400) X10*3/uL MPV 10.5 (9.4-12.3) fL Immature Gran % (Auto) 0.3 (0.0-0.4) % Neut % (Auto) 71.6 (45-73) % Lymph % (Auto) 21.6 (20-40) % Gallia % (Auto) 5.5 (2-11) % Eos % (Auto) 0.7 (0-4) % Baso % (Auto) 0.3 (0-2) % Lymph # (Auto) 1.5 (1.2-4.9) X10*3/uL Gallia # (Auto) 0.4 (0.1-1.2) X10*3/uL Eos # (Auto) 0.1 (0.0-0.4) X10*3/uL Baso # (Auto) 0.0 (0.0-0.2) X10*3/uL Abs Immat Gran (auto) 0.02 (0.00-0.03) X10*3/uL Absolute Neuts (auto) 5.1 (2.0-8.3) x10*3/uL Absolute Nucleated RBC 0.000 (0.0-0.012) X10*3/uL Nucleated RBC % (auto) 0.0 (0.0-0.2) /100WBC Sodium 138 (135-145) mmol/L Potassium 3.8 (3.3-5.1) mmol/L Chloride 107 (96-108) mmol/L Carbon Dioxide 25 (22-29) mmol/L Anion Gap 10 L (12-20) BUN 10 (9-16) mg/dL Creatinine 0.69 (0.5-1.4) mg/dL Estim Creat Clear Calc 138.6 Estimated GFR > 60 Random Glucose 91 (60-115) mg/dL Calcium 9.3 (8.4-10.2) mg/dL Urine Color Yellow Urine Appearance Clear Urine pH 5.5 (5.0-9.0) Ur Specific Hayes 1.020 (1.005-1.025) Urine Protein Negative (Neg-Trace) mg/dL Urine Glucose (UA) Negative (Negative) mg/dL Urine Ketones Negative (Negative) mg/dL Urine Blood Trace H (Negative) Urine Nitrite Negative (Negative) Ur Leukocyte Esterase Small (1+) H (Negative) Urine RBC 0-2 (0-2) /HPF Urine WBC 0-5 (0-5) /HPF Ur Squamous Epith Cells 0-2 (0-2) /HPF Urine Bacteria None Seen (None Seen) Hyaline Casts 0-2 (0-2) /LPF Independent Interpretation I performed an independent interpretation of an: Ultrasound Interpretation: left renal ultrasound without hydronephrosis Radiology Impression Discussion of test interpretation with radiology: I have reviewed the radiologist's reading. Radiologist Impression: EXAMINATION: US RETROPERITONEAL LIMITED, LEFT(RENAL ONLY) CLINICAL INFORMATION: Left flank pain. COMPARISON: CT abdomen and pelvis dated August 10, 2024. TECHNIQUE: Real-time imaging of the left kidney was performed. FINDINGS: LEFT KIDNEY: 9.7 x 4.3 x 5.2 cm (SAG x AP x TRV). The kidney is normal in size, contour, and echogenicity. Renal cortical thickness is normal. No calculi or focal parenchymal lesions. No hydronephrosis. A left ureteral jet is demonstrated. US/US renal LT IMPRESSION: The left kidney is normal in appearance. No hydronephrosis. Electronically signed by: Floyd Rush DO 08/12/2024 03:37 PM [facility] Independent Historian Clinical information obtained from an independent historian. History obtained from or confirmed by: Spouse External Record Review External record reviewed: Inpatient record Social Determinants Patient?s care significantly limited by Social Determinants of Health including: Other Social Determinant of Health Critical Care Time Critical Care Time Critical Care Time: No Discharge Plan Discharge Clinical Impression: Renal colic on left side Patient Disposition: Home, Self-Care Instructions: Renal Colic (ED) Additional Instructions: You were evaluated in the ED today for continued left flank pain. Your labs are normal. There is no evidence of kidney damage. Your urine does not show infection. The ultrasound of your left kidney is normal. There is no swelling or infection. Your continued pain is likely due to you passing a 1 mm stone. I advised you to continue taking Toradol at home as prescribed for your pain as this has been helping. I also recommend to follow up with urologist outpatient. You have been provided with a referral. Call them to establish care. They will not call you. Return with any new or worsening symptoms. In the case of an emergency call 911. Prescriptions: No Action ibuprofen 800 mg tablet 800 mg PO Q8H PRN (Reason: pain) Qty: 14 0RF acetaminophen [Tylenol Extra Strength] 500 mg tablet 1,000 mg PO QID PRN (Reason: fever or pain) Qty: 14 0RF cyclobenzaprine 10 mg tablet 10 mg PO Q8H Qty: 14 0RF ondansetron HCl 4 mg tablet 4 mg PO Q8H Qty: 14 0RF oseltamivir [Tamiflu] 75 mg capsule 75 mg PO BID 5 Days Qty: 10 0RF cyclobenzaprine 10 mg tablet 10 mg PO TID PRN (Reason: muscle spasm) Qty: 20 0RF ketorolac 10 mg tablet 10 mg PO TID PRN (Reason: pain) 5 Days Qty: 15 0RF Rx Instructions: given IV toradol in department Referrals: [facility]rology Services [Provider Group] - 3 days (Left ureteral stone) Reema Rivera MD [Primary Care Provider] - Stand Alone Forms: Work/School Release Interventions: ED Discharge Assessment Last Done: 08/12/24 15:51 Discharge Date/Time: 08/12/24 15:53 Print Language: Icelandic
[2024-08-12 15:51] VITALS: BP 118/73; PULSE 72; RESP 18; TEMP 36.6; O2SAT 100
== END 2024-08-12 15:53 | disposition home or self-care (01) ==
PROVIDERS: Emergency Provider Student in an Organized Health Care Education/Training Program; PCP Internal Medicine
DX: N23 Unspecified renal colic (principal)
CPT/HCPCS: 36415; 76775; 80048; 81001; 85025; 87086; 99283; 99284

== ENCOUNTER 2024-10-03 07:56 | Outpatient (AMB) | payer OTHER, SELFPAY ==
--- OUTSIDE RECORDS SUMMARY | 2024-10-03 07:59 | XMS_ITS | Encounter Summary ---
Author Organization [facility] Address [address] [place] [address] Phone Care Team Providers Care Range Aid Name Role Phone Unavailable Primary Care Provider Unavailabl e Encounter Details Date Type Department Care Team (Late st Contact Info) Description 11/29/2009 Documentation [facility] Family Medicine [address] [place] [address] Family Medicine, Physician [place] [address] Social History Tobacco Use Types Packs/Day Years Used Date Smoking Tobacco: Never Assessed Comments Unknown Sex and Gender Information Value Date Recorded Sex Assigned at Not on file Legal Sex Female 4:51 PM EDT Gender Identity Not on file Sexual Orientation Not on file documented as of this encounter Plan of Treatment Not on file documented as of this encounter Visit Diagnoses Not on filedocumented in this encounter
--- OUTSIDE RECORDS SUMMARY | 2024-10-03 07:59 | XMS_ITS | Encounter Summary ---
Author Organization [facility] Address [address] [place] [address] Phone Care Team Providers Care General Clerk Name Role Phone Unavailable Primary Care Provider Unavailabl e Encounter Details Date Type Department Care Team (Late st Contact Info) Description 07/10/2011 Documentation [facility] Family Medicine [address] [place] [address] Family Medicine, Physician [facility] [place] [address] Social History Tobacco Use Types [...]
--- OUTSIDE RECORDS SUMMARY | 2024-10-03 07:59 | XMS_ITS | Encounter Summary ---
Author Organization [facility] Address [address] [place] [address] Phone Care Team Providers Care Caustics Loader Name Role Phone Unavailable Primary Care Provider Unavailabl e Encounter Details Date Type Department Care Team (Late st Contact Info) Description 08/28/2011 Documentation [facility] Family Medicine [address] [place] [address] Family Medicine, [place] [address] Social History Tobacco Use Types [...]
--- OUTSIDE RECORDS SUMMARY | 2024-10-03 07:59 | XMS_ITS | Data Portability ---
Author Organization SRINIVASA [facility]aur [facility] [address] Address [address] [place] [address] Care Team Providers Care Torpedoman'S Mate Name Role Phone THA HILLIARD Primary Care Provider Assessment No assessment recorded. Plan of Treatment Reminders Order Date Submit Date Provider Last Modified By Organization Details Last Modified Time Details Appointments None recorded. Lab rapid strep group A, throat 2022 023 [email or web address] [facility], [address] [place] [address], [address], 14:58:49 streptococc us group A, culture, throat 2022 023 [facility], [address] [place] [address], [place], [address], 06:07:52 Referral None recorded. Procedures None recorded. Surgeries None recorded. Imaging None recorded. Medication Orders amoxicillin 500 mg capsule 2022 023 [facility], [address] [place], [address], 14:58:51 Patient TargetsNo targets recorded. Patient Instructions Encounter Date Encounter Id Patient Instructions Last Modified By Organization Details Last Modified Time 02/01/2023 [id number] sore throat: car e instructions Not available [...] Range : Negat leena Not Available [facility] ([facility]) [address] [facility], [place], [address], 02/04/2023 06:07:52 02/02/2002/01/2023 rapid strep group A, throa t Unknown Analyte Normal = Negati ve Not Available [address], [address], 02/01/2023 13:39:48 02/02/2002/01/2023 rapid strep group A, throa t Unknown Analyte negati ve Not Available [address] [place] [address], [phone], 02/01/2023 13:39:48 Result Notes None recorded. Problems Name Problem SNOMED Code Status Onset Date Resolution Date Notes Provider Name and Address Organization Details Recorded Time Disorder of thyroid gland 45739843 Active 023 BETTY santos PA - [facility] 13:38:36 Migraine 51548355 Active 023 [facility]antos [facility] [...] height Body mass index (BMI) Body weight Pain severity - 0-10 verbal numeric rating [Score] - Reported Oxygen saturation Oxygen saturation in Arterial blood by Pulse oximetry Heart rate Respiratory rate Body temperature Systolic blood pressure Diastolic blood pressure Provider Name and Address Organization Details Last Updated DateTime 3 170.18 cm 36.8 kg/m2 474950. 21 g 4 100 % 100 % 75 /min 16 /min 97.6 [degF] 125 mm[Hg] 88 mm[Hg] BETTY COOK PA - [facility] 13:41:52 Social History Question Answer Notes LastModified by Organizat ion Details LastModified Time Tobacco Smoking Status Never Smoker SRINIVASA Posey [facility] 02/01/2023 13:39:17 What Is Your [...] Diagnosis/Indication Diagnosis SNOMED-CT Code Diagnosis ICD10 Code Diagnosis Note [id number] SRINIVASA Beatty [address] Rob[address] Estevez [address] [place] [phone] 02/01/2023 12:46:49 02/01/2023 15:05:29 Acute pharyngitis 641903739 J02.9 Health Concerns Section Related Observation LastModified by Organization Detai ls LastModified Time None Recorded Concern Status LastModified by Organization Details LastModified Time None Recorded Advance Directives Directive None Recorded Payers Encounter Date Sequence Insurance Name Policy Number Policy Guillen Covered Member ID Guillen Member ID Guarantor Name 02/01/2023 1 [facility] - HEALTH NET PLAN (MEDICAID HMO) [id number] Jackie Keller [id number] Jackie Keller Notes Date Note Type Note Provider Name and Address Organization Details Recorded Time 02/02/20 23 text/htm l Sore throatReported bypatient.Source of patient informationInformation obtained from patient; Patient arrived at Urgent Care ambulatory Location:throat Severity:moderate Quality:sharp; hurts to swallow Onset/Timin days Associated Symptoms:no cough; no shortness of breath; no wheezing; no vomiting; no nausea;fever; body aches SRINIVASA Mendez [address] [place] [address] [place], [address], PA - [facility] 02/01/2023 15:03:41 OBGyn Episode No OBEpisode recorded.
--- OUTSIDE RECORDS SUMMARY | 2024-10-03 07:59 | XMS_ITS | Encounter Summary ---
Author Organization [facility] Address [address] [place] [address] Phone Care Team Providers Care Dock Manager Name Role Phone Unavailable Primary Care Provider Unavailabl e Encounter Details Date Type Department Care Team (Late st Contact Info) Description 03/04/2012 Documentation [facility] [place] [address] [place] [address] Family Medicine, Physician [facility] [place] [address] Social History Tobacco Use Types [...]
--- OUTSIDE RECORDS SUMMARY | 2024-10-03 07:59 | XMS_ITS | Clinical Summary ---
Author Organization [facility] it Address [address] [place] [address] Care Team Providers Care Design Printing Machine Set Up Operator Name Role Phone Reema Rivera MD Primary Care Provider [phone] Surgical History Surgery Date Site/Laterality Comments OTHER SURGICAL HISTORY 03/2020 PROCEDURE: HISTORICAL COSMETIC SURGERY; COMMENT: liposuction and omani butt lift Medical History Medical History Date Comments Hypothyroidism DX:Hypothyroidis m Iron deficiency anemia 06/15/2018 DX:Iron d eficiency anemia Seasonal allergies DX:Seasonal a llergies Family History Medical History Relation Name Comments Diabetes Maternal Grandfather Hypertension Maternal Grandfather Arthritis Maternal Grandmother Diabetes Maternal Grandmother Diabetes Mother Other: autistic Son Breast cancer Neg Hx Colon cancer Neg Hx Ovarian cancer Neg Hx Relation Name Status Comments Maternal Grandfather Maternal Grandmother Mother Son Alive Social History Tobacco Use Types Packs/Day Years Used Date Smoking Tobacco: Never Smokeless Tobacco: Never Alcohol Use Standard Drinks/Week Comments No 0 (1 standard drink = 0.6 oz pur e alcohol) Sex and Gender Information Value Date Recorded Sex Assigned at Not on file Gender Identity Not on file Sexual Orientation Not on file Obstetrics History Last Filed Vital Signs Vital Sign Reading Time Taken Comments Blood Pressure 97/66 08/21/2023 10:41 AM EST Pulse 74 04/10/2023 2:55 PM EDT Temperature - - Respiratory Rate - - Oxygen Saturation - - Inhaled Oxygen Concentration - - Weight 106 kg (234 lb 3.2 oz) 08/21/2023 10:41 A M EST Height 170.2 cm (5' 7 ) 08/21/2023 10:41 AM EST Body Mass Index 36.68 08/21/2023 10:41 AM EST Plan of Treatment Health Maintenance Due Date Last Done Comments Hepatitis B Vaccines (1 of 3 - 19+ 3-dose series) 2010 Depression Screening 07/30/2022 HIV Screening 07/30/2022 Hepatitis C Screening 07/30/2022 Social Influencers of Health Screening 07/30/2022 Cervical Cancer Screening: P ap Smear 11/09/2023 11/08/2020 COVID-19 Vaccine (1 - 2023-2 5 season) 2024 Influenza Vaccine (#1) 2024 8, 07/07/2017 DTaP,Tdap,and Td Vaccines (3 - Td or Tdap) 02/28/2031 02/28/2021, 05/11/2017 HIB Vaccines Aged Out No longer eligi ble based on patient's age to complete this topic HPV Vaccines Aged Out No longer eligi ble based on patient's age to complete this topic Hepatitis A Vaccines Aged Out No long er eligible based on patient's age to complete this topic IPV Vaccines Aged Out No longer eligi ble based on patient's age to complete this topic MMR Vaccines Aged Out No longer eligi ble based on patient's age to complete this topic Meningococcal ACWY Vaccine Aged Out N o longer eligible based on patient's age to complete this topic Pneumococcal Vaccine: Pediatrics (0 to 5 Years) and At-Risk Patients (6 to 64 Years) Aged Out No longer eligible b ased on patient's age to complete this topic RSV Immunization Patients Under 20 months Aged Out No longer eligible b ased on patient's age to complete this topic Varicella Vaccines Aged Out No longer eligible based on patient's age to complete this topic Procedures Procedure Name Priority Date/Time Associated Diagnosis Comments PAP SMEAR Routine 11/08/2020 from Last 3 Months or Most Recently Relevant to Health Maintenance Results * Pap smear (11/08/2020) 11/08/2020 Narrative HISTORICAL TESTING LAB RESULTING AGENCY - 11/12/2020 12:35 PM EDT [id number] THINPREP PAP, IMAGED: NEGATIVE FOR SQUAMOUS INTRAEPITHELIAL LESION AND MALIGNANCY . ABUNDANT PARTIALLY OBSCURING ACUTE INFLAMMATORY CELLS ARE PRESENT. DANYELL GOLDMAN , CT(ASCP) (CASE ELECTRONICALLY SIGNED 11 12 2020) ADEQUACY: SATISFACTORY ENDOCERVICAL/TRANSFORMATION ZONE COMPONENT ABSENT. SOURCE: THINPREP PAP HPV IF ASCUS, CERVICAL, IMAGED CLINICAL INFORMATION: HPV IF DIAGNOSIS OF ASCUS. , PAP HX NEG, LMP 08/13/20, Z12.4 Elsie Anaya CNM LAB CYTOLOGY ORDERAB LES HISTORICAL TESTING LAB RESULTING AGENCY from Last 3 Months or Most Recently Relevant to Health Maintenance Care Teams Design Printing Machine Set Up Operator Relationship Specialty Start Date End Date Reema Rivera MD [facility] [address] PCP - General Internal Medicine 02/28/21
--- OUTSIDE RECORDS SUMMARY | 2024-10-03 07:59 | XMS_ITS | Clinical Summary ---
Author Organization [facility] Address [address] [place] [address] Phone Care Team Providers Care Illuminating Engineer Name Role Phone Unavailable Primary Care Provider Unavailabl e Immunizations Name Administration Dates Next Due DTP 09/22/1995, 3,03/15/1992,01/11,1991 H1N1 07/20/2009,07/10/2009 HPV, Quadrivalent 02/01/2009,09/11/2008,07/11/20 08 Hep B, ped/adol 11/22/1992,09/20/1992,07/12/1992 Hib (PRP-T) 02/14/1993, 2,01/12/1992,11/09 IPV 01/26/1998, 6,02/14/1993,01/11,1991 Influenza Split 05/07/2010 Influenza, injectable, trivalent 08/16/2009 MMR 09/22/1995,09/20/1992 Measles 03/15/1992 Meningococcal Conj (Menactra) MCV4P 04/13/2007 Td (adult) (MBL), 2 Lf tetan us toxoid, PF, adsorbed 03/27/2005 Varicella 07/11/2008,06/14/2001 Family History Relation Name Status Comments Brother 1 Alive Brother: Alive and well, Strabismus/amblyopia, Alive and well Brother 2 Alive Brother: Alive and well, Strabismus/amblyopia, Alive and well Mother Mother: Hypothy roidism, Migraines Social History Tobacco Use Types Packs/Day Years Used Date Smoking Tobacco: Former Comments:Former smoker Comments Unknown Sex and Gender Information Value Date Recorded Sex Assigned at Not on file Legal Sex Female 4:51 PM EDT Gender Identity Not on file Sexual Orientation Not on file Last Filed Vital Signs Vital Sign Reading Time Taken Comments Blood Pressure 102/56 03/25/2012 12:00 AM EDT Pulse - - Temperature 36.3 ??C (97.3 ??F) 03/23/2012 12:00 AM E DT Respiratory Rate - - Oxygen Saturation - - Inhaled Oxygen Concentration - - Weight 76 kg (167 lb 8 oz) 03/25/2012 12:00 AM E DT Height 170.9 cm (5' 7.3 ) 03/25/2012 12:00 AM ED T Body Mass Index 26 03/25/2012 12:00 AM EDT Plan of Treatment Health Maintenance Due Date Last Done Comments DTaP,Tdap,and Td Vaccines (6 - Tdap) 03/28/2005 03/27/2005, 09/22/1995, 02/14/1993, Additional history exists Consider Men B Vaccine (1 of 2 - Bexsero 2-dose series) 2007 Influenza Vaccines (#1) 2024 05/07/2010, 08/16 COVID-19 Vaccine ( season) 2024 Hepatitis B Vaccines Completed 11/22/1992, 09/20/1992, 07/12/1992 HIB Vaccines Completed 02/14/1993, 02/28, 01/12/1992, Additional history exists MMR Vaccines Completed 09/22/1995, 09/20/1992 IPV Vaccines Completed 01/26/1998, 09/01, 02/14/1993, Additional history exists Meningococcal Vaccine Aged Out 04/13/2007 No piotr von eligible based on patient's age to complete this topic Varicella Vaccines Completed 07/11/2008, 06/14/2001 HPV Vaccines Completed 02/01/2009, 08/31, 07/11/2008 Hepatitis A Vaccines Aged Out No long er eligible based on patient's age to complete this topic Men B Vaccine Aged Out No longer elig ible based on patient's age to complete this topic Pneumococcal Vaccine Aged Out No long er eligible based on patient's age to complete this topic
--- OUTSIDE RECORDS SUMMARY | 2024-10-03 07:59 | XMS_ITS | Encounter Summary ---
Author Organization [facility] Address [address] [place] [address] Phone Care Team Providers Care Rest Room Matron Name Role Phone Unavailable Primary Care Provider Unavailabl e Encounter Details Date Type Department Care Team ([facility] st Contact Info) Description 04/16/2017 Conversion Encounter [facility] - [address] [address] Social History Tobacco Use Types Packs/Day Years [...]
--- NOTE | 2024-10-03 08:06 | MHC.OFFVIS ---
Intake Visit Reasons: kidney stone Stitch Welder Required: No Allergies No Known Allergies Allergy (Unverified 08/12/24 09:09) Medication List - Last Reconciled 10/03/24 by Sloan Curran MD acetaminophen (Tylenol Extra Strength) 1,000 mg (2 x 500 mg) PO QID PRN cyclobenzaprine 10 mg PO Q8H cyclobenzaprine 10 mg PO TID PRN ibuprofen 800 mg PO Q8H PRN oseltamivir (Tamiflu) 75 mg PO BID 5 days HPI Comments Details: 10/03/2024--Jackie is a 34-year-old female who was seen in the emergency room on 08/10/2024 and 08/12/2024 with left flank pain. She had a CTAP-on 08/10/2024 noting a 1 mm left ureteral stone. Follow-up renal ultrasound on 08/12/24 there was good ureteral jet no hydronephrosis. The patient today is asymptomatic. I have discussed with the patient that she passed the stone. I have discussed the importance of adequate hydration and a low oxalate and low-sodium diet.I have discussed diet modification to decrease risk of forming more kidney stones. I have discussed low oxalate diet and specific foods to avoid including certain green leafy vegetables, chocalate, nuts, tea, beets, rubarb; low sodium, decreased use of animal protein and the importance of hydration drinking up to 2-2.5 liters of fluids and use of adding lemon to water to increase citrate in the diet. A pamphlet is also provided today. Discussed evaluation with 24 hour urine collection. [facility] Medical History No pertinent past medical history Social History Patient Tobacco Use Status: Never used Tobacco Review of Systems Const All systems reviewed & are unremarkable except as noted in HPI and below Reports no additional complaints Eyes Reports no additional complaints ENT Reports no additional complaints Card Reports no additional complaints Resp Reports no additional complaints GI Reports no additional complaints Reports as per HPI Musc Reports no additional complaints Skin/Breast Reports system reviewed and no additional complaints, except as documented Neuro Reports no additional complaints Psych Reports no additional complaints Endo Reports no additional complaints Tree/Lymph Reports no additional complaints Aller/Immun Reports no additional complaints Physical Exam Const General: cooperative, healthy appearing and no acute distress Orientation/consciousness: patient oriented x3 HEENT Head: Yes normal to inspection, Yes normocephalic and Yes atraumatic Eyes Conjunctivae: conjunctivae normal Neck Neck: Yes normal visual inspection and Yes trachea midline Chest Chest palpation & inspection: normal inspection of the chest Resp Effort & Inspection: normal respiratory effort GI Inspection: Yes normal to inspection Neuro General: patient oriented x3 Extrem General: No edema Psych Appearance: grossly normal Results Reviewed Results Reviewed: Date of Service: 08/10/24 CT ABDOMEN AND PELVIS WITHOUT CONTRAST CLINICAL INFORMATION: Left flank pain. COMPARISON: CT abdomen pelvis 11/15/2013. TECHNIQUE: Multidetector volumetric imaging was performed from the superior aspect of the liver through the pubic symphysis. Sagittal and coronal reformatted images were obtained on the technologist's workstation. This CT examination was performed using dose optimization techniques as appropriate, variously including the following: *Automated exposure control *Adjustment of mA and/or kV according to patient size (this includes techniques or standardized protocols for targeted exams where dose is matched to indication/reason for exam; i.e. extremities or head) *Use of iterative reconstruction technique DLP: 816 mGy-cm FINDINGS: LUNG BASES: The visualized lung bases are unremarkable. LIVER, GALLBLADDER, AND BILIARY TREE: The liver is normal in size, shape, and attenuation. No focal hepatic lesion or biliary ductal dilatation is present. The gallbladder is unremarkable with no evidence of radiopaque gallstones, gallbladder wall thickening, or obvious pericholecystic inflammatory changes. PANCREAS: Unremarkable. SPLEEN: Unremarkable. ADRENAL GLANDS: Unremarkable. KIDNEYS AND URETERS: No hydronephrosis or perinephric inflammatory changes. A single 1 mm calculus is present in the region of the distal left ureter approximately 2 cm proximal to the left ureteral vesicular junction (series 4 image 61). This finding may represent a phlebolith in close proximity to the distal left ureter or a left ureteral calculus. No nephrolithiasis identified. BLADDER: Unremarkable. GASTROINTESTINAL TRACT: Normal appearance of the appendix. No free intraperitoneal fluid or gas collections. No intestinal dilatation or mural thickening. Normal appearance of the stomach and duodenum ABDOMINAL WALL: No significant hernia is appreciated. LYMPH NODES: Normal. VASCULAR: Unremarkable. PELVIC VISCERA: Intrauterine device is noted. No adnexal lesions visualized. OSSEOUS STRUCTURES: No suspicious skeletal abnormalities. IMPRESSION: 1. Solitary 1 mm calculus in the region of the distal left ureter approximately 2 cm proximal to the left ureteral vesicular junction. This finding may represent a phlebolith in close proximity to the distal left ureter or a left ureteral calculus. No hydronephrosis or perinephric inflammatory changes. No nephrolithiasis. 2. Normal appendix. Date of Service: 08/10/24 CT ABDOMEN AND PELVIS WITHOUT CONTRAST CLINICAL INFORMATION: Left flank pain. COMPARISON: CT abdomen pelvis 11/15/2013. TECHNIQUE: Multidetector volumetric imaging was performed from the superior aspect of the liver through the pubic symphysis. Sagittal and coronal reformatted images were obtained on the technologist's workstation. This CT examination was performed using dose optimization techniques as appropriate, variously including the following: *Automated exposure control *Adjustment of mA and/or kV according to patient size (this includes techniques or standardized protocols for targeted exams where dose is matched to indication/reason for exam; i.e. extremities or head) *Use of iterative reconstruction technique DLP: 816 mGy-cm FINDINGS: LUNG BASES: The visualized lung bases are unremarkable. LIVER, GALLBLADDER, AND BILIARY TREE: The liver is normal in size, shape, and attenuation. No focal hepatic lesion or biliary ductal dilatation is present. The gallbladder is unremarkable with no evidence of radiopaque gallstones, gallbladder wall thickening, or obvious pericholecystic inflammatory changes. PANCREAS: Unremarkable. SPLEEN: Unremarkable. ADRENAL GLANDS: Unremarkable. KIDNEYS AND URETERS: No hydronephrosis or perinephric inflammatory changes. A single 1 mm calculus is present in the region of the distal left ureter approximately 2 cm proximal to the left ureteral vesicular junction (series 4 image 61). This finding may represent a phlebolith in close proximity to the distal left ureter or a left ureteral calculus. No nephrolithiasis identified. BLADDER: Unremarkable. GASTROINTESTINAL TRACT: Normal appearance of the appendix. No free intraperitoneal fluid or gas collections. No intestinal dilatation or mural thickening. Normal appearance of the stomach and duodenum ABDOMINAL WALL: No significant hernia is appreciated. LYMPH NODES: Normal. VASCULAR: Unremarkable. PELVIC VISCERA: Intrauterine device is noted. No adnexal lesions visualized. OSSEOUS STRUCTURES: No suspicious skeletal abnormalities. CT/CT abdomen pelvis wo IV con IMPRESSION: 1. Solitary 1 mm calculus in the region of the distal left ureter approximately 2 cm proximal to the left ureteral vesicular junction. This finding may represent a phlebolith in close proximity to the distal left ureter or a left ureteral calculus. No hydronephrosis or perinephric inflammatory changes. No nephrolithiasis. 2. Normal appendix. Assessment & Plan Assessment & Plan (1) Kidney stone on left side: Code(s): N20.0 - Calculus of kidney Category: Medical (2) Left flank pain: Code(s): R10.9 - Unspecified abdominal pain Category: Medical Plan Left ureteral stone passed. 24 hour urine collection. Patient Instructions: The patient had an opportunity to ask questions regarding treatment plan. The patient expressed understanding and agreement with the above treatment plan. The patient is aware they should contact our office by phone for worsening of their current condition or the appearance of new symptoms. Compliance is encouraged with any medications and followup testing that is ordered. It is a privilege to be allowed the opportunity to participate in the urologic care of your patient. If you have any questions or concerns regarding treatment for the above conditions please do not hesitate to contact me. The office telephone contact is [phone]. This note is constructed in part using voice recognition software. While every effort has been made to ensure accuracy lead business systems analyst errors may have been included. Yours sincerely, Sloan Curran MD Coding Level of Care Code New Pt Level 3 (27160) Diagnoses Kidney stone on left side N20.0 Left flank pain R10.9
== END 2024-10-03 08:32 | disposition home or self-care (01) ==
PROVIDERS: PCP Internal Medicine; Visit Provider Urology
DX: N20.0 Calculus of kidney (principal); R10.9 Unspecified abdominal pain
CPT/HCPCS: 99203

== ENCOUNTER → 2024-10-03 07:56 | Outpatient (BNVA) | payer OTHER, SELFPAY | PROVIDERS: PCP Internal Medicine; Visit Provider Urology | DX: N20.0 Calculus of kidney (principal); R10.9 Unspecified abdominal pain | CPT/HCPCS: 99202 ==

== ENCOUNTER 2025-02-22 08:21 | Outpatient (REF) | payer OTHER, SELFPAY ==
[2025-02-22 10:13] LABS: Thyroid Stimulating Hormone 0.93 uIU/mL (0.32-4.0)
== END 2025-02-22 08:22 | disposition home or self-care (01) ==
LOC: HO.LAB 08:21
PROVIDERS: PCP Internal Medicine; Visit Provider Internal Medicine
DX: Z00.00 Encounter for general adult medical examination without abnormal findings (principal); E03.8 Other specified hypothyroidism; L71.9 Rosacea, unspecified; N20.0 Calculus of kidney; Z13.31 Encounter for screening for depression
CPT/HCPCS: 36415; 84443